=== PATIENT | female | born 1975 | race Caucasian/White ===

== ENCOUNTER 2018-01-26 22:15 | Emergency (ER) | payer OTHER, SELFPAY ==
[2018-01-26 22:17] VITALS: BP 171/98; PULSE 102; RESP 20; TEMP 36.4; O2SAT 100; BMI 21.4
[2018-01-26 23:13] VITALS: BP 145/90; PULSE 93; RESP 18; O2SAT 100
[2018-01-26 23:13] LABS: Add Manual Diff / Slide Review NO; Basophils Percent Auto 0.8 % (0-2); Hematocrit 38.9 % (36-46); Hemoglobin 13.4 g/dL (12.0-16.0); Lymphocytes Percent Auto 32.7 % (25-40); Mean Corpuscular HGB Conc 34.3 % (30-36); Mean Corpuscular Hemoglobin 31.7 PG (26-34); Mean Corpuscular Volume 92.2 fL (80-100); Monocytes Percent Auto 9.5 % (3-14); Neutrophils Absolute Auto 3900 /uL (3000-5900); Platelet Count 280 X10^3/uL (150-400); Red Blood Cell Count 4.22 X10^6/uL (4.0-5.2); Red Cell Distribution Width 12.6 % (11.6-14.8); White Blood Cell Count 7.3 X10^3/uL (4.5-11.0)
[2018-01-26 23:24] LABS: Alanine Aminotransferase 33 IU/L (9-52); Albumin 4.6 g/dL (3.5-5.0); Albumin Globulin Ratio 1.6 (1.0-2.8); Alkaline Phosphatase 57 U/L (38-126); Aspartate Aminotransferase 27 IU/L (14-36); Bilirubin Total 0.4 mg/dL (0.2-1.3); Blood Urea Nitrogen 13 mg/dL (7-17); Carbon Dioxide 27 mmol/L (22-32); Chloride 102 mmol/L (98-107); Estimated Glomerular Filt Rate > 60.0 mL/min (>60); Globulin 2.9 g/dL (1.7-4.1); Glucose 88 mg/dL (70-100); HEMOLYSIS < 15 (0-50); Lipase 44 U/L (23-300); Potassium 3.3 mmol/L (3.4-5.1); Sodium 142 mmol/L (137-145); Total Protein 7.5 g/dL (6.3-8.2)
[2018-01-26] MEDS: SODIUM CHLORIDE 0.9% 1,000 ML 150 ML IV (23:27)
--- NOTE | 2018-01-26 23:47 | DI.RAD.S_ITS ---
PROCEDURE: XR ACUTE ABDOMEN SERIES INDICATIONS: 42 year-old female with abdominal pain. TECHNIQUE: One view chest and two views of the abdomen were acquired. COMPARISON: None. FINDINGS: Surgical changes and devices: Patient is status post cholecystectomy. Intrauterine contraceptive device is present. Chest: Lungs are clear. Heart size is normal. No pleural effusions. No pneumoperitoneum. Abdomen: Bowel gas pattern is normal. No suspicious calcifications. Visualized solid organ contours appear normal. Bones: No suspicious bony lesions. There is small calcification adjacent to the right humeral head. IMPRESSION: 1. No imaging explanation for abdominal pain, status post cholecystectomy. 2. Small right shoulder rotator cuff calcific tendinitis. Dictated by: Adan Hernandez M.D. on 01/27/2018 at 7:57 Approved by: Adan Hernandez M.D. on 01/27/2018 at 7:58
[2018-01-27] MEDS: MAG HYDROX/ALUMINUM/SIMETH SUS 20 ML, LIDOCAINE VISCOUS 2% 15 ML PO (00:01)
[2018-01-27] MEDS: PANTOPRAZOLE 40 MG VIAL IV (00:01)
--- NOTE | 2018-01-27 00:09 | ED.ABDPAIN ---
HPI - Abdominal Pain General Chief Complaint: Abdominal Pain Stated Complaint: STATES UPPER LEFT QUADRANT ABDOMINAL PAIN Time Seen by Provider: 01/26/18 22:40 Source: patient Mode of arrival: ambulatory Limitations: no limitations History of Present Illness HPI narrative: Patient presents to the emergency department today with a chief complaint of a few days of left upper quadrant pain which is sharp and stabbing in nature. She denies palliation of her pain but states it is worse with palpation. She denies radiation of her pain. She denies nausea, vomiting or diarrhea. She had her gallbladder out in July. She does drink a few whiskeys daily. She denies any history of ulcers, gastritis or reflux. MD complaint: abdominal pain Pain Consistency: constant Location: LUQ Severity: mild Quality: cramping and stabbing Radiation: none Migration to: epigastric Relieving factors: nothing Exacerbating factors: nothing Related Data Home Medications Medication Instructions Recorded Confirmed [MIRENA] #0 03/31/04 Bupropion Hydrochloride 150 mg PO * DOSE/FREQUENCY #0 01/26/08 (WELLBUTRIN) Previous Rx's Medication Instructions Recorded pantoprazole 40 mg PO DAILY #30 tab 01/27/18 Allergies Allergy/AdvReac Type Severity Reaction Status Date / Time INGREDIENT: NO KNOWN - NO Allergy Unknown Uncoded 12/04/17 12:57 KNOWN DRUG ALLERGY Review of Systems Review of Systems All systems reviewed & are unremarkable except as noted in HPI and below Constitutional Denies chills, Denies fever(s), Denies lethargy and Denies weakness Eyes Denies change in vision, Denies eye discharge, Denies irritation and Denies loss of vision ENT Ears, Nose, Mouth, and Throat: Denies change in voice, Denies neck pain and Denies sore throat Cardiovascular Denies chest pain, Denies irregular heart rhythm, Denies lightheadedness, Denies palpitations, Denies dyspnea, Denies dyspnea on exertion and Denies orthopnea Respiratory Denies cough, Denies dyspnea, Denies dyspnea on exertion and Denies wheezing Gastrointestinal Gastrointestinal: Reports abdominal pain, Denies change in bowel habits, Denies diarrhea, Denies nausea and Denies vomiting Genitourinary Denies hematuria, Denies flank pain, Denies urinary incontinence and Denies urinary urgency Musculoskeletal Denies neck pain Integumentary/Breasts Denies pruritus, Denies erythema, Denies rash and Denies wounds Neurologic Denies confusion, Denies loss of vision and Denies weakness Psychiatric Denies anxiety, Denies confusion, Denies depression, Denies homicidal ideation and Denies suicidal ideation Endocrine Denies palpitations Hematologic/Lymphatic Denies easy bruising Allergic/Immunologic Denies wheezing PFSH Medical History Cholecystectomy planned (Acute) Social History Smoking Status: Never smoker Exam Initial Vital Signs Initial Vital Signs: Vital Signs Temperature 97.6 F 01/26/18 22:17 Pulse Rate 102 H 01/26/18 22:17 Respiratory Rate 20 01/26/18 22:17 Blood Pressure 171/98 H 01/26/18 22:17 Pulse Oximetry 100 01/26/18 22:17 Const General: cooperative, well developed and anxious Nutritional Appearance: well nourished Orientation: alert, awake, oriented x3 and not confused Eyes General: appearance normal, both eyes and all related structures Eyelids: eyelids normal Conjunctivae: conjunctivae normal Sclera: sclerae normal Pupils: PERRL EOM: EOM intact bilaterally Chest Chest: normal inspection of the chest Resp Effort & Inspection: normal respiratory effort, able to speak in complete sentences, no respiratory distress and no use of accessory muscles Auscultation: clear to auscultation bilaterally, no rales, no rhonchi and no wheezes GI Inspection: non-distended Palpation: soft, no hepatosplenomegaly, No guarding, No pulsatile mass and tender (LUQ) Auscultation: hypoactive bowel sounds Back/Spine/Pelvis Back: No CVA tenderness Cervical Spine: cervical ROM normal and No pain with cervical ROM Thoracic/Lumbar Spine: thoracic and lumbar spine normal to inspection Neuro General: alert, oriented x3, gait normal and no focal motor deficits Speech: speech normal Psych Appearance: well kempt Mental Status: mental status grossly normal Attitude: cooperative Thought Content: normal and suicidality Judgment: judgment good Course Orders Ordered: ED Orders 01/26/18 23:00 Complete Blood Count AUTO DIFF Stat Comprehensive Metabolic Panel Stat Lipase Stat 01/26/18 23:47 XR acute abdomen series Stat Discontinued Medications Hydrocodone Bitart/Acetaminophen (Vicodin Prepack) 1 bottle MISC SEEINSTR ONE Stop: 01/27/18 00:38 Last Admin: 01/27/18 00:53 Dose: 1 bottle Al Hydrox/Mg Hydrox/Simethicone 20 ml/ Lidocaine HCl 15 ml 0 ml PO NOW ONE Stop: 01/26/18 23:48 Last Admin: 01/27/18 00:01 Dose: 15 ml Sodium Chloride (Normal Saline 0.9%) 1,000 mls @ 150 mls/hr IV CONT DOMINIC Last Infusion: 01/27/18 01:06 Dose: 150 mls/hr Infusion: 01/27/18 00:53 Dose: 150 mls/hr Admin: 01/26/18 23:27 Dose: 150 mls/hr Ondansetron HCl (Zofran Odt Prepack) 1 bottle MISC SEEINSTR ONE Stop: 01/27/18 00:38 Last Admin: 01/27/18 00:53 Dose: 1 bottle Pantoprazole Sodium (Protonix) 40 mg IV NOW ONE Stop: 01/26/18 23:48 Last Admin: 01/27/18 00:01 Dose: 40 mg Vital Signs - 8 hr 01/26/18 22:17 01/26/18 23:13 01/27/18 01:07 Temperature 97.6 F 98.2 F Pulse Rate 102 H 93 H 91 H Respiratory Rate 20 18 16 Blood Pressure 171/98 H 139/92 H Blood Pressure [Right Arm] 145/90 H Pulse Oximetry 100 100 100 MDM - Abdominal Pain Differential Diagnosis Differential diagnosis: Likely abdominal pain, constipation, diverticulitis, gastroenteritis, pancreatitis and small bowel obstruction Medical Records Attestation: I reviewed the patient's medical records. Lab Data Attestation: I reviewed the patient's lab results. Result diagrams: 01/26/18 23:00 01/26/18 23:00 Lab Results 01/26/18 01/26/18 Range/Units 23:00 23:00 WBC 7.3 (4.5-11.0) X10^3/uL RBC 4.22 (4.0-5.2) X10^6/uL Hgb 13.4 (12.0-16.0) g/dL Hct 38.9 (36-46) % MCV 92.2 (80-100) fL MCH 31.7 (26-34) PG MCHC 34.3 (30-36) % RDW 12.6 (11.6-14.8) % Plt Count 280 (150-400) X10^3/uL Neut % (Auto) 54.0 (50-75) % Lymph % (Auto) 32.7 (25-40) % [place] % (Auto) 9.5 (3-14) % Eos % (Auto) 3.0 (2-4) % Baso % (Auto) 0.8 (0-2) % Neut # (Auto) 3900 (6803-7375) /uL Sodium 142 (137-145) mmol/L Potassium 3.3 L (3.4-5.1) mmol/L Chloride 102 (98-107) mmol/L Carbon Dioxide 27 (22-32) mmol/L BUN 13 (7-17) mg/dL Creatinine 0.50 L (0.52-1.04) mg/dL Estimated GFR > 60.0 (>60) mL/min BUN/Creatinine Ratio 26.0 H (6-22) Glucose 88 (70-100) mg/dL Calcium 9.0 (8.4-10.2) mg/dL Total Bilirubin 0.4 (0.2-1.3) mg/dL AST 27 (14-36) IU/L ALT 33 (9-52) IU/L Alkaline Phosphatase 57 (38-126) U/L Total Protein 7.5 (6.3-8.2) g/dL Albumin 4.6 (3.5-5.0) g/dL Globulin 2.9 (1.7-4.1) g/dL Albumin/Globulin Ratio 1.6 (1.0-2.8) Lipase 44 (23-300) U/L ECG Data Attestation: I personally reviewed and interpreted this ECG as follows: Prior ECG tracings: not available for review MDM Narrative Medical decision making narrative: Patient has some improvement on above state therapies. Pancreatitis considered however normal enzymes would make that diagnosis much less likely. Small-bowel obstruction considered but x-rays with suggest a nonobstructive bowel pattern. Gastritis, ulcer, dyspepsia are most likely diagnoses given history and exam. Had lengthy bedside discussion with patient about evolution of symptoms which would prompt a return and she has verbalized her understanding. Additionally we discussed whether not a CT scan is likely to provide additional useful information and we are in agreement that we will withhold it this point time given lack of fever, abnormal labs, or significant abdominal exam findings. She states that she will follow up with her primary care providers in [facility]. She has been given local follow-up with General surgery given her possible need of an EGD Discharge Plan Departure Patient Disposition: Home, Self-Care Clinical Impression: Gastritis, Constipation Discharge Date/Time: 01/27/18 01:13 Interventions: ED Discharge Assessment Last Done: 01/27/18 01:07 Instructions: DI for Abdominal Pain-Adult, DI for Dyspepsia Activity Restrictions/Additional Instructions: 1. Drink plenty of fluids with frequent small sips. 2. For the next 24 hours a clear liquid diet is advised. After that please employ a brat diet which would include bananas, rice, apples, toast. 3. Please take medications as directed. 4. Please follow-up with your doctor in the next 1-2 days. Call the office for an appointment. 5. Please return to the emergency Department for any worsening or persistent symptoms, such as increasing pain or fever. *You have been diagnosed with [ left upper quadrant pain: Ulcer versus gastritis versus other ] *What to do: *Take medications as directed take stool softeners Prescriptions: New pantoprazole 40 mg tablet,delayed release (DR/EC) 40 mg PO DAILY Qty: 30 RF: 0 No Action [MIRENA] Qty: 0 RF: 0 Bupropion Hydrochloride (WELLBUTRIN) 150 mg PO * [place] DOSE/FREQUENCY Qty: 0 RF: 0 Referrals: Eleazar Gross MD [Physician] - Stand Alone Forms: Work/School Restrictions
[2018-01-27] MEDS: HYDROCODONE/ACET 5/325 PREPACK 1 BOTTLE MISC (00:53)
[2018-01-27] MEDS: ONDANSETRON 4 MG ODT PREPACK 1 BOTTLE MISC (00:53)
[2018-01-27 01:07] VITALS: BP 139/92; PULSE 91; RESP 16; TEMP 36.8; O2SAT 100
== END 2018-01-27 01:13 | disposition home or self-care (01) ==
PROVIDERS: Emergency Provider Emergency Medicine
DX: K29.70 Gastritis, unspecified, without bleeding (principal); K59.00 Constipation, unspecified
CPT/HCPCS: 36591; 74022; 80053; 81003; 81025; 83690; 85025; 93005; 96361; 96374; 99283; 99285; C9113

== ENCOUNTER 2018-01-28 15:37 | Emergency (ER) | payer OTHER, SELFPAY ==
[2018-01-28 15:48] VITALS: BP 142/82; PULSE 90; RESP 20; O2SAT 100
[2018-01-28 16:51] LABS: Add Manual Diff / Slide Review NO; Basophils Percent Auto 0.9 % (0-2); Eosinophils Percent Auto 4.6 % (2-4); Hematocrit 40.4 % (36-46); Hemoglobin 13.7 g/dL (12.0-16.0); Lymphocytes Percent Auto 30.3 % (25-40); Mean Corpuscular HGB Conc 33.8 % (30-36); Mean Corpuscular Hemoglobin 31.9 PG (26-34); Mean Corpuscular Volume 94.1 fL (80-100); Monocytes Percent Auto 8.8 % (3-14); Neutrophils Absolute Auto 3800 /uL (3000-5900); Neutrophils Percent Auto 55.4 % (50-75); Platelet Count 284 X10^3/uL (150-400); Red Blood Cell Count 4.29 X10^6/uL (4.0-5.2); White Blood Cell Count 6.9 X10^3/uL (4.5-11.0)
[2018-01-28 17:00] LABS: D Dimer 327 ng/mL (<230)
[2018-01-28 17:02] LABS: Alanine Aminotransferase 271 IU/L (9-52); Albumin 4.1 g/dL (3.5-5.0); Albumin Globulin Ratio 1.5 (1.0-2.8); Alkaline Phosphatase 93 U/L (38-126); Aspartate Aminotransferase 127 IU/L (14-36); Bilirubin Total 0.9 mg/dL (0.2-1.3); Blood Urea Nitrogen 9 mg/dL (7-17); Calcium 8.6 mg/dL (8.4-10.2); Carbon Dioxide 31 mmol/L (22-32); Chloride 100 mmol/L (98-107); Estimated Glomerular Filt Rate > 60.0 mL/min (>60); Globulin 2.8 g/dL (1.7-4.1); Glucose 85 mg/dL (70-100); Lipase 53 U/L (23-300); Potassium 3.6 mmol/L (3.4-5.1); Sodium 142 mmol/L (137-145); Total Protein 6.9 g/dL (6.3-8.2)
[2018-01-28] MEDS: SODIUM CHLORIDE 0.9% 1,000 ML 150 ML IV (17:05)
[2018-01-28] MEDS: MAG HYDROX/ALUMINUM/SIMETH SUS 20 ML, LIDOCAINE VISCOUS 2% 15 ML PO (17:05)
[2018-01-28 17:11] VITALS: BP 131/82; PULSE 83; O2SAT 99
[2018-01-28 17:15] LABS: HEMOLYSIS < 15 (0-50); Troponin I < 0.012 ng/mL (0.01-0.034)
--- NOTE | 2018-01-28 17:15 | DI.CT.S_ITS ---
PROCEDURE: CT ANGIO CHEST PE PROTOCOL INDICATIONS: Left lower chest / left upper abdominal pain. TECHNIQUE: After the administration of intravenous contrast, 2 mm thick sections acquired from the pulmonary apices to the posterior costophrenic angles. 3-dimensional maximum intensity projection (MIP) coronal and sagittal reformats were then acquired through the thorax. For radiation dose reduction, the following was used: automated exposure control, adjustment of mA and/or kV according to patient size. COMPARISON: [facility], CT, CT ABDOMEN PELVIS W CON, 01/28/2018, 17:25. FINDINGS: Image quality: Excellent. Pulmonary arteries: Pulmonary arteries demonstrate no intraluminal filling defects to suggest central pulmonary embolism. Lungs and pleura: There is mild dependent atelectasis bilaterally. No focal consolidation. No pleural effusions or pneumothorax. Central and peripheral airways are patent. Mediastinum: Heart size is normal, without pericardial effusion. No mediastinal or hilar adenopathy. There is triangular-shaped soft tissue in the anterior mediastinum compatible with residual thymus. Thoracic aorta is normal in caliber and enhancement. Esophagus is normal in caliber, without hiatal hernia. Bones and chest wall: There are bilateral breast implants. Curvilinear densities are demonstrated within the left implant likely representing an intracapsular implant rupture. No suspicious bony lesions. Ribs and thoracic spine appear intact throughout. No axillary or supraclavicular adenopathy. Abdomen: Visualized upper abdomen demonstrates inflammatory fat stranding within the omentum in the left upper quadrant anteriorly with a central region of fat density compatible with an omental infarct. There is mild adjacent asymmetric thickening and edema of the ventral abdominal wall. IMPRESSION: 1. No evidence of pulmonary embolism. 2. Visualized upper abdomen demonstrates a small region of omental infarct in the left upper quadrant with associated asymmetric edema and thickening of the left ventral abdominal wall which may represent reactive changes. 3. Findings compatible with an intracapsular rupture of the left breast implant of indeterminate acuity. Dictated by: Anoop Porter M.D. on 01/28/2018 at 18:29 Approved by: Anoop Porter M.D. on 01/28/2018 at 18:33
--- NOTE | 2018-01-28 17:15 | DI.CT.S_ITS ---
PROCEDURE: CT ABDOMEN PELVIS W CON INDICATIONS: Left lower chest / left upper abd pain, worse on inspiration TECHNIQUE: After the administration of intravenous contrast, 5 mm thick sections acquired from the diaphragm to the symphysis. 5 mm coronal and sagittal reformats were acquired. For radiation dose reduction, the following was used: automated exposure control, adjustment of mA and/or kV according to patient size. COMPARISON: [facility], CT, CT ANGIO CHEST PE PROTOCOL, 01/28/2018, 17:25. FINDINGS: Image quality: Excellent. ABDOMEN: Lung bases: There is mild dependent atelectasis. Heart size is normal. Solid organs: Liver is normal in size and enhancement. Gallbladder is surgically absent. Biliary system is non dilated. Pancreas enhances normally. Spleen is normal in size and enhancement. No adrenal nodules. Kidneys demonstrate normal size and enhancement, without hydronephrosis. Peritoneum and bowel: Bowel loops demonstrate normal wall thickness and caliber. The appendix is normal in appearance. There is a small amount of free fluid within the pelvis which appears within physiologic limits. No free air. Nodes and vessels: No retroperitoneal or mesenteric adenopathy by size criteria. Aorta and inferior vena cava are normal in size. Miscellaneous: There is focal region of fat stranding of the omentum within the left upper quadrant anterior to the stomach with a central focus of fat attenuation. There is mild asymmetric thickening and edema of the left ventral normal wall. No ventral hernias. PELVIS: Genitourinary: Bladder wall thickness is normal. An IUD is demonstrated in appropriate position within the uterus. Miscellaneous: No inguinal hernias or adenopathy. Bones: No suspicious bony lesions. No vertebral body compression fractures. IMPRESSION: 1. Localized region of inflammatory fat stranding in the omentum within the left upper quadrant with a central area of fat density compatible with an omental infarct. 2. Adjacent asymmetric thickening and edema of the ventral abdominal wall likely represents reactive edema, but the differential includes possible hemorrhage. No evidence of active extravasation. Dictated by: Anoop Porter M.D. on 01/28/2018 at 18:21 Approved by: Anoop Porter M.D. on 01/28/2018 at 18:29
--- NOTE | 2018-01-28 18:14 | ED_ITS ---
HPI - Abdominal Pain General Chief Complaint: Abdominal Pain Stated Complaint: ABDOMINAL PAIN Time Seen by Provider: 01/28/18 16:27 History of Present Illness HPI narrative: HPI 42-year-old female presents for evaluation of approximately 5 days of poorly characterized intermittent left upper quadrant abdominal pain that appears to be worsened with taking deep breaths per movement. Patient without nausea, vomiting, fevers, chills, diarrhea. Patient was seen M/S/F/SocHx notable for: please see HPI; remainder reviewed with patient and in chart. ROS: Negative constitutional, eye, cardiovascular, pulmonary, GI, , MSK, skin , neurologic, psychiatric, endocrine unless noted in the HPI. Exam Gen: Pleasant, non-toxic appearing, resting comfortably. HEENT: NC, AT, PEERL, EOMI. Resp: Clear to auscultation bilaterally, normal work of breathing, no accessory muscle usage. Card: Regular rate and rhythm with no murmurs, rubs, or gallops, extremities warm and well perfused. GI: moderate left upper quadrant tenderness palpation, mild epigastric and mild right upper quadrant tenderness palpation, remainder of abdomen nontender to palpation without rebound or guarding. : No suprapubic tenderness to palpation. MSK: No visible deformities, strength and tone without visually appreciable deficit. Skin: Normal color with no visible lesions. Neuro: AO x 3, no facial asymmetry, vision and hearing WNL. Psych: Mood and affect appropriate. Labs / Imaging: WBC 6.9, hemoglobin 13.7, d-dimer 327, sodium 142, potassium 3.6, total bilirubin 0.9, AST 127, ALT 271, ALP 93, lipase 53, troponin < 0.012, d-dimer 327 UA - pending Urine - pending EKG: SR 82 bpm, no ST segment elevations or depressions, no LBBB. CT PE: pending CT abdomen/pelvis: pending [facility] Previous chart, nursing note, labs, imaging, and vitals reviewed. A: 42-year-old female presents for evaluation of approximately 5 days of poorly characterized intermittent left upper quadrant abdominal pain that appears to be worsened with taking deep breaths per movement. DDx: gastritis, GERD, ulcer, splenic infarction, splenic artery aneurysm, PE, effusion, pneumothorax, pancreatitis, pericarditis, myocarditis Evaluation: patient with a nonsurgical abdominal exam. Elevated d-dimer, concern for left lower lobe PE with secondary upper abdominal pain. CTA chest, CT abdomen and pelvis as well as urinalysis pending at time of patient care transfer to the oncoming overnight provider. GI cocktail given for treatment of possible gastroesophageal reflux disease. Impression: abdominal pain (please reference below for remainder of encounter information) Related Data Home Medications Medication Instructions Recorded Confirmed sertraline 1 dose PO DAILY 01/28/18 01/28/18 Previous Rx's Medication Instructions Recorded pantoprazole 40 mg PO DAILY #30 tab 01/27/18 Allergies Allergy/AdvReac Type Severity Reaction Status Date / Time No Known Drug Allergies Allergy Verified 01/28/18 15:52 COUNTS INCLUDE 234 BEDS AT THE [facility] Medical History Cholecystectomy planned (Acute) Social History Smoking Status: Never smoker Exam Initial Vital Signs Initial Vital Signs: Vital Signs Pulse Rate 90 01/28/18 15:48 Respiratory Rate 20 01/28/18 15:48 Blood Pressure 142/82 H 01/28/18 15:48 Pulse Oximetry 100 01/28/18 15:48 Course Orders Ordered: ED Orders 01/28/18 16:37 Complete Blood Count AUTO DIFF Stat Comprehensive Metabolic Panel Stat D Dimer Stat Lipase Stat Troponin I Stat 01/28/18 16:40 EKG-12 Lead Stat 01/28/18 16:41 Test Urine Stat 01/28/18 16:50 Urinalysis and Microscopic Stat 01/28/18 17:15 CT abdomen pelvis w con Stat CT angio chest PE protocol Stat Sodium Chloride (Normal Saline 0.9%) 1,000 mls @ 150 mls/hr IV CONT DOMINIC Last Admin: 01/28/18 17:05 Dose: 150 mls/hr Discontinued Medications Al Hydrox/Mg Hydrox/Simethicone 20 ml/ Lidocaine HCl 15 ml 0 ml PO NOW ONE Stop: 01/28/18 16:41 Last Admin: 01/28/18 17:05 Dose: 15 ml Vital Signs - 8 hr 01/28/18 15:48 01/28/18 17:11 Pulse Rate 90 83 Respiratory Rate 20 Blood Pressure 142/82 H Blood Pressure [Right Arm] 131/82 H Pulse Oximetry 100 99 MDM - Abdominal Pain Lab Data Result diagrams: 01/28/18 16:37 01/28/18 16:37 Lab Results 01/28/18 01/28/18 01/28/18 Range/Units 16:37 16:37 16:37 WBC 6.9 (4.5-11.0) X10^3/uL RBC 4.29 (4.0-5.2) X10^6/uL Hgb 13.7 (12.0-16.0) g/dL Hct 40.4 (36-46) % MCV 94.1 (80-100) fL MCH 31.9 (26-34) PG MCHC 33.8 (30-36) % RDW 13.0 (11.6-14.8) % Plt Count 284 (150-400) X10^3/uL Neut % (Auto) 55.4 (50-75) % Lymph % (Auto) 30.3 (25-40) % [place] % (Auto) 8.8 (3-14) % Eos % (Auto) 4.6 H (2-4) % Baso % (Auto) 0.9 (0-2) % Neut # (Auto) 3800 (2598-8055) /uL D-Dimer 327 H (<230) ng/mL Sodium 142 (137-145) mmol/L Potassium 3.6 (3.4-5.1) mmol/L Chloride 100 (98-107) mmol/L Carbon Dioxide 31 (22-32) mmol/L BUN 9 (7-17) mg/dL Creatinine 0.60 (0.52-1.04) mg/dL Estimated GFR > 60.0 (>60) mL/min BUN/Creatinine Ratio 15.0 (6-22) Glucose 85 (70-100) mg/dL Calcium 8.6 (8.4-10.2) mg/dL Total Bilirubin 0.9 (0.2-1.3) mg/dL AST 127 H (14-36) IU/L ALT 271 H (9-52) IU/L Alkaline Phosphatase 93 (38-126) U/L Troponin I < 0.012 (0.01-0.034) ng/mL Total Protein 6.9 (6.3-8.2) g/dL Albumin 4.1 (3.5-5.0) g/dL Globulin 2.8 (1.7-4.1) g/dL Albumin/Globulin Ratio 1.5 (1.0-2.8) Lipase 53 (23-300) U/L Discharge Plan Departure Prescriptions: No Action sertraline 100 mg tablet 1 dose PO DAILY RF: 0 pantoprazole 40 mg tablet,delayed release (DR/EC) 40 mg PO DAILY Qty: 30 RF: 0
[2018-01-28 18:15] VITALS: BP 134/80; PULSE 88; O2SAT 99
[2018-01-28 19:25] VITALS: BP 130/88; PULSE 91; O2SAT 99
== END 2018-01-28 19:30 | disposition home or self-care (01) ==
PROVIDERS: Emergency Provider Emergency Medicine
DX: R10.9 Unspecified abdominal pain (principal)
CPT/HCPCS: 71275; 74177; 80053; 81003; 83690; 84484; 85025; 85379; 93005; 96360; 96361; 99283; 99285; Q9967

== ENCOUNTER 2019-07-10 12:11 | Emergency (ER) | payer OTHER, SELFPAY ==
--- NOTE | 2019-07-10 12:37 | PC.NURSE ---
Pt states she took azo yesterday. Feels well and does not want to be seen.
== END 2019-07-10 12:38 | disposition left against medical advice (07) ==
PROVIDERS: Emergency Provider Emergency Medicine

== ENCOUNTER 2020-05-23 14:47 | Emergency (ER) | payer OTHER, SELFPAY ==
[2020-05-23 15:51] VITALS: BP 148/83; PULSE 98; RESP 16; TEMP 36.6; O2SAT 100; BMI 24.3
[2020-05-23 15:52] LABS: Add Manual Diff / Slide Review NO; Basophils Absolute Auto 100 /uL (0-100); Basophils Percent Auto 0.8 % (0-2); Eosinophils Absolute Auto 400 /uL (0-450); Eosinophils Percent Auto 5.2 % (2-4); Hematocrit 37.8 % (36-46); Hemoglobin 12.7 g/dL (12.0-16.0); Lymphocytes Absolute Auto 2500 /uL (1100-4500); Lymphocytes Percent Auto 35.8 % (25-40); Mean Corpuscular HGB Conc 33.7 % (30-36); Mean Corpuscular Hemoglobin 31.4 PG (26-34); Monocytes Absolute Auto 800 /uL (0-900); Monocytes Percent Auto 10.8 % (3-14); Neutrophils Absolute Auto 3300 /uL (1500-7000); Neutrophils Percent Auto 47.4 % (50-75); Platelet Count 326 X10^3/uL (150-400); Red Blood Cell Count 4.06 X10^6/uL (4.0-5.2); Red Cell Distribution Width 12.9 % (11.6-14.8)
[2020-05-23 15:55] LABS: INR 0.9 (0.9-1.3); Prothrombin Time 10.7 SECONDS (10.1-12.7)
[2020-05-23 15:58] LABS: PTT Partial Thromboplastin Tim 32 SECONDS (26.4-36.2)
[2020-05-23 15:59] LABS: Alanine Aminotransferase 19 IU/L (<35); Albumin 4.2 g/dL (3.5-5.0); Albumin Globulin Ratio 1.7 (1.0-2.8); Alkaline Phosphatase 61 U/L (38-126); Aspartate Aminotransferase 25 IU/L (14-36); BUN Creatinine Ratio 22.2 (6-22); Bilirubin Total 0.4 mg/dL (0.2-1.3); Blood Urea Nitrogen 14 mg/dL (7-17); Calcium 9.1 mg/dL (8.4-10.2); Carbon Dioxide 31 mmol/L (22-32); Chloride 104 mmol/L (98-107); Estimated Glomerular Filt Rate > 60.0 mL/min (>60); Globulin 2.5 g/dL (1.7-4.1); Glucose 81 mg/dL (70-100); HEMOLYSIS < 15 (0-50); Lipase 222 U/L (23-300); Potassium 3.3 mmol/L (3.4-5.1); Sodium 140 mmol/L (137-145); Total Protein 6.7 g/dL (6.3-8.2)
[2020-05-23 16:00] LABS: Lactate (Lactic Acid) 0.8 mmol/L (0.7-2.1)
--- NOTE | 2020-05-23 16:03 | ED.EXTPRO ---
HPI - Extremity Problem <YOHANA Hayes - Last Filed: 05/24/20 01:41> General Chief complaint: Extremity Problem,Nontraumatic Stated complaint: RIGHT HAND SWELLING SWELLING LYMPHS 1 MONTH Time Seen by Provider: 05/23/20 15:44 Source: patient Mode of arrival: Ambulatory Limitations: no limitations History of Present Illness HPI Narrative: This is a 44 year female, current vapor, has history of depression presents to ED with chief complain of right dominant hand increasing swelling, warmth, pain and itchiness since yesterday morning. Onset of symptoms started yesterday morning when she woke up in her dorsal hand which now has increased slight to dorsal aspect or hand and mostly in volar aspect of forearm. Patient denies fever, chills, nausea or vomiting but reports not feeling well. Patient reports pain is aching and sharp with teaching and rates as 6/10. Patient noticed very small dry lesions on dorsal aspect of right thumb without any drainage or worsening redness or pain from the site. Patient denies history of cellulitis, diabetes, immunocompromise conditions. Patient has an 1st appointment with Dr. Perez in July. Patient also reports she feels swelling in her lymph system in bilateral upper arms, and neck region and reports occasional weight gain and loose. Patient denies history of heart failure or cardiac conditions. Related Data Home Medications Medication Instructions Recorded Confirmed sertraline 1 dose PO DAILY 01/28/18 01/28/18 Previous Rx's Medication Instructions Recorded pantoprazole 40 mg PO DAILY #30 tab 01/27/18 hydrocodone-acetaminophen [[place]] See Rx Instructions .ROUTE 01/28/18 .COMPLEX #14 tab doxycycline hyclate 100 mg PO BID 7 Days #14 cap 05/23/20 hydrocodone-acetaminophen [[place]] 1 tab PO TID PRN #5 tab 05/23/20 hydroxyzine HCl 25 mg PO BID PRN #7 tab 05/23/20 Allergies Allergy/AdvReac Type Severity Reaction Status Date / Time No Known Drug Allergies Allergy Verified 01/28/18 15:52 Review of Systems <YOHANA Hayes - Last Filed: 05/24/20 01:41> Review of Systems Narrative: General: Denies fever, chills, fatigue, (+) malaise, sweats. HEENT: Denies sinus pain, ear pain, sore throat, difficulty swallowing, dizziness. Respiratory: Denies dyspnea, cough, wheezing, hemoptysis, sputum. Cardiovascular: Denies chest pain, palpitations, orthopnea, edema. Gastrointestinal: Denies nausea, vomiting, abdominal pain, diarrhea, constipation, melena. : Denies dysuria, frequency, incontinence, hematuria, urinary retention. Musculoskeletal: See HPI Skin: See HPI Neurologic: Denies weakness, headache, numbness, change in speech, confusion, seizures, incoordination. Psychiatric: No concerning psychosocial issues. 12-point review of systems is negative except for those stated above. Patient History <YOHANA Hayes - Last Filed: 05/24/20 01:41> Medical History Depression (Acute) Surgical History H/O breast reconstruction (Acute) H/O knee surgery (Acute) History of Achilles tendon repair (Acute) History of cholecystectomy (Acute) Social History Smoking Status: Never smoker Smoking Status: Never smoker tobacco type: vaping alcohol intake frequency: a few times a week Substance Use Type: does not use Exam <YOHANA Hayes - Last Filed: 05/24/20 01:41> Narrative Exam Narrative: GEN: Alert, oriented x 3, well appearing and nourished, and in no acute distress. Head: Normal cephalic, atraumatic. No scalp or temporal tenderness, palpable mass or rash. EYES: Pupils are equal, round, and reactive to light and accommodation. Extraocular muscles are intact bilaterally. There is no subconjunctival hemorrhage, exudate and sclera non-icteric. ENT: Hearing grossly intact. Nose without bleeding, purulent discharge or deviation. Mucous membrane moist, no mucosal lesion. Throat without erythema, tonsillar hypertrophy or exudate. Uvula in midline, airway patent. Neck: Trachea in midline. No JVD, non-tender without lymphadenopathy. No masses or thyroid megaly. Supple, non-tender and no meningeal signs. CARDIAC: Normal regular rate and rhythm without murmurs, gallops, or rubs. No chest wall tenderness. No peripheral edema, cyanosis or pallor. Capillary refill is less than 2 seconds. RESPIRATORY: Lungs are clear to auscultate bilaterally. No cough, wheezes, rales, or rhonchi. No stridor, respiratory distress, increase work of breathing, or accessary muscle used. ABD: Abdomen soft, nontender and non-distended. No guarding or rebound tenderness to palpate. Bowel sounds are normal in all 4 quadrants. There is no palpable masses or organomegaly. EXT: Full painless ROM of all extremities with no loss of sensation, strength. No obvious swelling to bilateral upper and lower extremities as patient states. Right dorsal hand with moderate swelling, warmth, erythema extending to forearm mostly in volar aspect. Radial pulse intact with brisk cap refill. Distal fingers spared from swelling, erythema, or swelling. Tiny flat lesion on dorsal aspect of right thumb without increase in redness, swelling, warmth, drainage. Outlined with a skin pen along the mild erythema extending to forearm. Patient reports right axilla lymph nodes tenderness to palpate but without swelling appreciated. SKIN: Warm, dry, normal color for patient. No erythema, lesions or rash over other visible areas. BACK: Nontender without deformity or crepitance. No flank tenderness. NEUROLOGICAL: Alert and oriented to place, time and person. Sensation and motor function intact bilaterally. No facial droops, dysphasia. PSYCHIATRIC: Good judgement and reason, without hallucinations, abnormal affect or abnormal behaviors during the examination. Patient is not suicidal. Initial Vital Signs Initial Vital Signs: Vital Signs Temperature 98 F 05/23/20 15:51 Pulse Rate 98 H 05/23/20 15:51 Respiratory Rate 16 05/23/20 15:51 Blood Pressure 148/83 H 05/23/20 15:51 Pulse Oximetry 100 05/23/20 15:51 <Desirae Tapia DO - Last Filed: 05/28/20 07:37> Initial Vital Signs Initial Vital Signs: Vital Signs Temperature 98 F 05/23/20 15:51 Pulse Rate 98 H 05/23/20 15:51 Respiratory Rate 16 05/23/20 15:51 Blood Pressure 148/83 H 05/23/20 15:51 Pulse Oximetry 100 05/23/20 15:51 Scores <YOHANA Hayes - Last Filed: 05/24/20 01:41> GCS [place] coma scale eye opening: Spontaneous Ion coma scale verbal response: Orientated [place] coma scale motor response: Obey commands Ion coma scale total score: 15 qSOFA Altered Mental Status (GCS <15): No Respiratory rate greater than/equal to 22: No Systolic blood pressure less than or equal to 100: No qSOFA Total: 0 0-1 Not High Risk 1-3 High risk Course <Brian YOHANA Klein - Last Filed: 05/24/20 01:41> Orders Ordered: Discontinued Medications Vancomycin HCl (Vancomycin) 1,000 mg in 200 mls @ 200 mls/hr IV NOW ONE Stop: 05/23/20 16:59 Last Infusion: 05/23/20 17:48 Dose: 0 mls/hr Documented by: Admin: 05/23/20 16:18 Dose: 200 mls/hr Documented by: REYNOLD Sodium Chloride (Normal Saline 0.9%) 1,000 mls @ 150 mls/hr IV CONT DOMINIC Last Infusion: 05/23/20 18:45 Dose: 0 mls/hr Documented by: Admin: 05/23/20 16:18 Dose: 150 mls/hr Documented by: REYNOLD Ketorolac Tromethamine (Toradol) 15 mg IV NOW ONE Stop: 05/23/20 16:02 Last Admin: 05/23/20 16:17 Dose: 15 mg Documented by: REYNOLD Potassium Chloride (Klor-Con M20) 40 meq PO NOW ONE Stop: 05/23/20 16:18 Last Admin: 05/23/20 16:44 Dose: 40 meq Documented by: JAM Vital Signs Vital signs: Vital Signs - 8 hr 05/23/20 18:49 Pulse Rate 82 Respiratory Rate 20 Blood Pressure 148/72 H Pulse Oximetry 100 <Desirae Tapia DO - Last Filed: 05/28/20 07:37> Orders Ordered: Discontinued Medications Vancomycin HCl (Vancomycin) 1,000 mg in 200 mls @ 200 mls/hr IV NOW ONE Stop: 05/23/20 16:59 Last Infusion: 05/23/20 17:48 Dose: 0 mls/hr Documented by: Admin: 05/23/20 16:18 Dose: 200 mls/hr Documented by: REYNOLD Sodium Chloride (Normal Saline 0.9%) 1,000 mls @ 150 mls/hr IV CONT DOMINIC Last Infusion: 05/23/20 18:45 Dose: 0 mls/hr Documented by: Admin: 05/23/20 16:18 Dose: 150 mls/hr Documented by: REYNOLD Ketorolac Tromethamine (Toradol) 15 mg IV NOW ONE Stop: 05/23/20 16:02 Last Admin: 05/23/20 16:17 Dose: 15 mg Documented by: REYNOLD Potassium Chloride (Klor-Con M20) 40 meq PO NOW ONE Stop: 05/23/20 16:18 Last Admin: 05/23/20 16:44 Dose: 40 meq Documented by: JAM Vital Signs Vital signs: Vital Signs - 8 hr 05/23/20 18:49 Pulse Rate 82 Respiratory Rate 20 Blood Pressure 148/72 H Pulse Oximetry 100 MDM - Extremity (Nontraumatic) <YOHANA Hayes - Last Filed: 05/24/20 01:41> Differential Diagnosis Differential diagnosis: Likely cellulitis and other (sprain, nec fasciitis, heart failure) Medical Records Attestation: I reviewed the patient's medical records. Lab Data Attestation: I reviewed the patient's lab results. Result diagrams: 05/23/20 15:40 05/23/20 15:40 Labs: Lab Results 05/23/20 05/23/20 05/23/20 Range/Units 15:40 15:40 15:40 WBC 7.0 (4.5-11.0) X10^3/uL RBC 4.06 (4.0-5.2) X10^6/uL Hgb 12.7 (12.0-16.0) g/dL Hct 37.8 (36-46) % MCV 93.0 (80-100) fL MCH 31.4 (26-34) PG MCHC 33.7 (30-36) % RDW 12.9 (11.6-14.8) % Plt Count 326 (150-400) X10^3/uL Neut % (Auto) 47.4 L (50-75) % Lymph % (Auto) 35.8 (25-40) % [place] % (Auto) 10.8 (3-14) % Eos % (Auto) 5.2 H (2-4) % Baso % (Auto) 0.8 (0-2) % Neut # (Auto) 3300 (1706-3179) /uL Lymph # (Auto) 2500 (0476-9407) /uL [place] # (Auto) 800 (0-900) /uL Eos # (Auto) 400 (0-450) /uL Baso # (Auto) 100 (0-100) /uL PT 10.7 (10.1-12.7) SECONDS INR 0.9 (0.9-1.3) APTT 32 (26.4-36.2) SECONDS Sodium (137-145) mmol/L Potassium (3.4-5.1) mmol/L Chloride (98-107) mmol/L Carbon Dioxide (22-32) mmol/L BUN (7-17) mg/dL Creatinine (0.52-1.04) mg/dL Estimated GFR (>60) mL/min BUN/Creatinine Ratio (6-22) Glucose (70-100) mg/dL Lactate (0.7-2.1) mmol/L Calcium (8.4-10.2) mg/dL Total Bilirubin (0.2-1.3) mg/dL AST (14-36) IU/L ALT (<35) IU/L Alkaline Phosphatase (38-126) U/L NT-Pro-B Natriuret Pep (<125) pg/mL Total Protein (6.3-8.2) g/dL Albumin (3.5-5.0) g/dL Globulin (1.7-4.1) g/dL Albumin/Globulin Ratio (1.0-2.8) Lipase (23-300) U/L Procalcitonin < 0.05 (<0.5) ng/mL 05/23/20 05/23/20 05/23/20 Range/Units 15:40 15:40 16:06 WBC (4.5-11.0) X10^3/uL RBC (4.0-5.2) X10^6/uL Hgb (12.0-16.0) g/dL Hct (36-46) % MCV (80-100) fL MCH (26-34) PG MCHC (30-36) % RDW (11.6-14.8) % Plt Count (150-400) X10^3/uL Neut % (Auto) (50-75) % Lymph % (Auto) (25-40) % [place] % (Auto) (3-14) % Eos % (Auto) (2-4) % Baso % (Auto) (0-2) % Neut # (Auto) (3360-5997) /uL Lymph # (Auto) (4794-1463) /uL [place] # (Auto) (0-900) /uL Eos # (Auto) (0-450) /uL Baso # (Auto) (0-100) /uL PT (10.1-12.7) SECONDS INR (0.9-1.3) APTT (26.4-36.2) SECONDS Sodium 140 (137-145) mmol/L Potassium 3.3 L (3.4-5.1) mmol/L Chloride 104 (98-107) mmol/L Carbon Dioxide 31 (22-32) mmol/L BUN 14 (7-17) mg/dL Creatinine 0.63 (0.52-1.04) mg/dL Estimated GFR > 60.0 (>60) mL/min BUN/Creatinine Ratio 22.2 H (6-22) Glucose 81 (70-100) mg/dL Lactate 0.8 (0.7-2.1) mmol/L Calcium 9.1 (8.4-10.2) mg/dL Total Bilirubin 0.4 (0.2-1.3) mg/dL AST 25 (14-36) IU/L ALT 19 (<35) IU/L Alkaline Phosphatase 61 (38-126) U/L NT-Pro-B Natriuret Pep 66 (<125) pg/mL Total Protein 6.7 (6.3-8.2) g/dL Albumin 4.2 (3.5-5.0) g/dL Globulin 2.5 (1.7-4.1) g/dL Albumin/Globulin Ratio 1.7 (1.0-2.8) Lipase 222 (23-300) U/L Procalcitonin (<0.5) ng/mL MDM Narrative Medical decision making narrative: This is a 44 year female who presents to ED with swelling, pain and warmth to right dominant hand since yesterday morning which has been progressively increasing today up to right forearm. Patient is afebrile and hemodynamically stable. No leukocytosis. Slight hypokalemia of 3.3. Normal kidney function. Normal lipase. Negative procalcitonin and lactate. Normal coag. Patient is immunocompetent. Patient nontoxic appearing. Patient was treated with vancomycin 1 Gm in ED and discharged to home with doxycycline b.i.d. course for 7 day course to cover MRSA and Strep etiology cellulitis. The reports intermittent weight gain and swelling to lower and upper extremities but without obvious physical exam findings. No previous history of cardiac or pulmonary disease. ProBNP is negative. Return precautions were discussed with patient and patient verbalized understanding in agreement with treatment plan. <Desirae Tapia, - Last Filed: 05/28/20 07:37> Lab Data Labs: Lab Results 05/23/20 05/23/20 05/23/20 Range/Units 15:40 15:40 15:40 WBC 7.0 (4.5-11.0) X10^3/uL RBC 4.06 (4.0-5.2) X10^6/uL Hgb 12.7 (12.0-16.0) g/dL Hct 37.8 (36-46) % MCV 93.0 (80-100) fL MCH 31.4 (26-34) PG MCHC 33.7 (30-36) % RDW 12.9 (11.6-14.8) % Plt Count 326 (150-400) X10^3/uL Neut % (Auto) 47.4 L (50-75) % Lymph % (Auto) 35.8 (25-40) % [place] % (Auto) 10.8 (3-14) % Eos % (Auto) 5.2 H (2-4) % Baso % (Auto) 0.8 (0-2) % Neut # (Auto) 3300 (0588-6673) /uL Lymph # (Auto) 2500 (1754-4692) /uL [place] # (Auto) 800 (0-900) /uL Eos # (Auto) 400 (0-450) /uL Baso # (Auto) 100 (0-100) /uL PT 10.7 (10.1-12.7) SECONDS INR 0.9 (0.9-1.3) APTT 32 (26.4-36.2) SECONDS Sodium (137-145) mmol/L Potassium (3.4-5.1) mmol/L Chloride (98-107) mmol/L Carbon Dioxide (22-32) mmol/L BUN (7-17) mg/dL Creatinine (0.52-1.04) mg/dL Estimated GFR (>60) mL/min BUN/Creatinine Ratio (6-22) Glucose (70-100) mg/dL Lactate (0.7-2.1) mmol/L Calcium (8.4-10.2) mg/dL Total Bilirubin (0.2-1.3) mg/dL AST (14-36) IU/L ALT (<35) IU/L Alkaline Phosphatase (38-126) U/L NT-Pro-B Natriuret Pep (<125) pg/mL Total Protein (6.3-8.2) g/dL Albumin (3.5-5.0) g/dL Globulin (1.7-4.1) g/dL Albumin/Globulin Ratio (1.0-2.8) Lipase (23-300) U/L Procalcitonin < 0.05 (<0.5) ng/mL 05/23/20 05/23/20 05/23/20 Range/Units 15:40 15:40 16:06 WBC (4.5-11.0) X10^3/uL RBC (4.0-5.2) X10^6/uL Hgb (12.0-16.0) g/dL Hct (36-46) % MCV (80-100) fL MCH (26-34) PG MCHC (30-36) % RDW (11.6-14.8) % Plt Count (150-400) X10^3/uL Neut % (Auto) (50-75) % Lymph % (Auto) (25-40) % [place] % (Auto) (3-14) % Eos % (Auto) (2-4) % Baso % (Auto) (0-2) % Neut # (Auto) (1969-0143) /uL Lymph # (Auto) (3281-8638) /uL [place] # (Auto) (0-900) /uL Eos # (Auto) (0-450) /uL Baso # (Auto) (0-100) /uL PT (10.1-12.7) SECONDS INR (0.9-1.3) APTT (26.4-36.2) SECONDS Sodium 140 (137-145) mmol/L Potassium 3.3 L (3.4-5.1) mmol/L Chloride 104 (98-107) mmol/L Carbon Dioxide 31 (22-32) mmol/L BUN 14 (7-17) mg/dL Creatinine 0.63 (0.52-1.04) mg/dL Estimated GFR > 60.0 (>60) mL/min BUN/Creatinine Ratio 22.2 H (6-22) Glucose 81 (70-100) mg/dL Lactate 0.8 (0.7-2.1) mmol/L Calcium 9.1 (8.4-10.2) mg/dL Total Bilirubin 0.4 (0.2-1.3) mg/dL AST 25 (14-36) IU/L ALT 19 (<35) IU/L Alkaline Phosphatase 61 (38-126) U/L NT-Pro-B Natriuret Pep 66 (<125) pg/mL Total Protein 6.7 (6.3-8.2) g/dL Albumin 4.2 (3.5-5.0) g/dL Globulin 2.5 (1.7-4.1) g/dL Albumin/Globulin Ratio 1.7 (1.0-2.8) Lipase 222 (23-300) U/L Procalcitonin (<0.5) ng/mL Discharge Plan Departure Patient Disposition: Home Clinical Impression: Cellulitis Qualifiers: Site of cellulitis: extremity Site of cellulitis of extremity: upper extremity Laterality: right Qualified Code(s): L03.113 - Cellulitis of right upper limb Discharge Date/Time: 05/23/20 18:54 Instructions: DI for Cellulitis -- Adult Activity Restrictions/Additional Instructions: You have been diagnosed with [right upper extremity cellulitis.]. What to do: *Take your medications as directed. Please start taking doxycycline tonight before bed and twice a day for next 7 days. This is antibiotic medication. Hydroxyzine is for itching and as needed. You can take [id number] Tylenol and or Motrin as needed for discomfort. Tylenol 650-1000 mg as needed up to 3 times a day. Ibuprofen 400-600 mg as needed for pain 3 to 4 times a day with food to decrease GI irritation. [place] is narcotic pain medication and use it only for severe pain. It can cause drowsiness and constipation so please take precautions. Please do not drink alcohol, drive, or operate heavy equipments. Please avoid taking hydroxyzine and [place] at the same time since this can cause increase in sedation. This medication have been transmitted to [facility]. *Follow up with your primary care provider in 2-3 days, call for an appointment. Let them know you were seen in the ED and that we asked you to be seen in follow up. *Return to ED if you have any new, worsening, or concerning symptoms, such as [worsening pain, increasing warmth, swelling, redness after couple of doses of antibiotic medication, chest pain, breathing difficulty, unable to tolerate fluids or any acute concerns]. Prescriptions: New doxycycline hyclate 100 mg capsule 100 mg PO BID 7 Days Qty: 14 RF: 0 hydrocodone-acetaminophen [[place]] 5-325 mg tablet 1 tab PO TID PRN (Reason: pain) Qty: 5 RF: 0 hydroxyzine HCl 25 mg tablet 25 mg PO BID PRN (Reason: itching) Qty: 7 RF: 0 No Action sertraline 100 mg tablet 1 dose PO DAILY RF: 0 hydrocodone-acetaminophen [[place]] 5-325 mg tablet See Rx Instructions .ROUTE .COMPLEX Qty: 14 RF: 0 pantoprazole 40 mg tablet,delayed release (DR/EC) 40 mg PO DAILY Qty: 30 RF: 0 Referrals: Sharon De La Torre DO [Physician] - <Desirae Tapia DO - Last Filed: 05/28/20 07:37> [facility] ED Attending Tylorature Attestation: I was immediately available in the department for consultation. Documentation has been reviewed. I agree with assessment and plan.
[2020-05-23] MEDS: KETOROLAC 60 MG/2 ML VIAL 15 MG IV (16:17)
[2020-05-23] MEDS: SODIUM CHLORIDE 0.9% 1,000 ML 150 ML IV (16:18)
[2020-05-23] MEDS: VANCOMYCIN 1,000 MG/200 ML PIGGYBACK 200 MG IV (16:18)
[2020-05-23 16:22] LABS: Procalcitonin < 0.05 ng/mL (<0.5)
[2020-05-23 16:23] LABS: NT-proBNP (BNP-Adult 18+) 66 pg/mL (<125)
[2020-05-23] MEDS: POTASSIUM CHLORIDE 20 MEQ TAB 40 MEQ PO (16:44)
[2020-05-23 18:49] VITALS: BP 148/72; PULSE 82; RESP 20; O2SAT 100
== END 2020-05-23 18:54 | disposition home or self-care (01) ==
PROVIDERS: Emergency Medicine; Emergency Provider Nurse Practitioner Family
DX: L03.113 Cellulitis of right upper limb (principal)
CPT/HCPCS: 36415; 80053; 83605; 83690; 83880; 84145; 85025; 85610; 85730; 96361; 96365; 96366; 96375; 99284; J1885

== ENCOUNTER → 2020-06-29 15:58 | Outpatient (CLI) | payer OTHER, SELFPAY ==
[2020-06-29 16:27] LABS: C-Reactive Protein Quant < 0.5 mg/dL (<1.0)
[2020-06-29 16:50] LABS: Erythrocyte Sedimentation Rate 2 MM/HR (0-20)
[2020-06-30 19:09] LABS: ANA Screen, IFA Positive (.)
== END ==
PROVIDERS: PCP Family Medicine; Referring Provider Nurse Practitioner Family; Visit Provider Nurse Practitioner Family
DX: M25.50 Pain in unspecified joint (principal); F41.9 Anxiety disorder, unspecified
CPT/HCPCS: 36415; 84443; 85651; 86038; 86140

== ENCOUNTER → 2020-07-16 11:29 | Outpatient (CLI) | payer OTHER, SELFPAY ==
[2020-07-16 13:31] LABS: Rheumatoid Factor < 8.6 IU/mL (<12.0)
[2020-07-19 23:29] LABS: CCP Antibodies IgG/IgA 4 units (0-19)
== END ==
PROVIDERS: PCP Family Medicine; Referring Provider Family Medicine; Visit Provider Family Medicine
DX: M25.50 Pain in unspecified joint (principal)
CPT/HCPCS: 36415; 86200; 86430

== ENCOUNTER 2020-08-02 00:41 | Emergency (ER) | payer OTHER, SELFPAY ==
[2020-08-02 00:52] VITALS: BP 159/89; PULSE 96; RESP 18; TEMP 36.8; O2SAT 98; BMI 25.8
--- NOTE | 2020-08-02 01:14 | ED_ITS ---
HPI - Female Genitourinary General Chief complaint: Urogenital-Female Stated complaint: UTI SYMPTOMS X1 DAY Time Seen by Provider: 08/02/20 00:52 Source: patient Mode of arrival: Ambulatory Limitations: no limitations History of Present Illness HPI Narrative: 44F daily smoker presents with a day of urinary frequency, burning, and urgency. She denies systemic symptoms such as fever, chills, N/V, or back pain. She's had UTIs in the past and states this seems the same. MD Complaint: dysuria and UTI Onset (ago): hour(s) Location: suprapubic Severity: mild Quality: Burning Duration: constant Relieving factors: none Exacerbating factors: urination Urinary symptoms: Difficulty Urinating, Dysuria, Frequency and Urgency Patient : No Related Data Home Medications Medication Instructions Recorded Confirmed duloxetine 60 mg capsule,delayed 60 mg PO DAILY 06/29/20 06/29/20 release escitalopram oxalate 20 mg tablet 20 mg PO DAILY 06/29/20 06/29/20 ibuprofen 200 mg tablet 600 mg PO TID tab 06/29/20 06/29/20 Previous Rx's Medication Instructions Recorded hydroxyzine HCl 25 mg PO BID PRN #7 tab 05/23/20 buspirone 5 mg tablet 5 mg PO BID #60 tab 06/29/20 fluconazole 150 mg PO Q3D #2 tab 08/02/20 sulfamethoxazole-trimethoprim 1 tab PO BID 5 Days #10 tab 08/02/20 [Bactrim DS] Allergies Allergy/AdvReac Type Severity Reaction Status Date / Time No Known Drug Allergies Allergy Verified 08/02/20 00:57 Review of Systems Constitutional Constitutional: Denies chills, Denies fatigue, Denies fever(s), Denies frequent falls, Denies lethargy and Denies weakness Eyes Eyes: Denies change in vision, Denies eye discharge, Denies irritation and Denies loss of vision ENT Ears, Nose, Mouth, and Throat: Denies change in voice, Denies dizziness, Denies neck pain, Denies sore throat and Denies throat swelling Cardiovascular Cardiovascular: Denies chest pain, Denies irregular heart rhythm, Denies lightheadedness, Denies palpitations, Denies dyspnea, Denies dyspnea on exertion and Denies orthopnea Respiratory Respiratory: Denies cough, Denies dyspnea, Denies dyspnea on exertion and Denies wheezing Gastrointestinal Gastrointestinal: Denies abdominal pain, Denies change in bowel habits, Denies diarrhea, Denies nausea and Denies vomiting Genitourinary Genitourinary: Reports dysuria and Reports urinary urgency Genitourinary: Reports dysuria and Reports urinary urgency Musculoskeletal Musculoskeletal: Denies neck pain and Denies numbness Integumentary/Breasts Skin/Breast: Denies pruritus, Denies erythema, Denies rash and Denies wounds Neurologic Neurologic: Denies behavioral changes, Denies confusion, Denies dizziness, Denies frequent falls, Denies loss of vision, Denies numbness and Denies weakness Psychiatric Psychiatric: Denies anxiety, Denies behavioral changes, Denies confusion, Denies depression, Denies homicidal ideation and Denies suicidal ideation Endocrine Endocrine: Denies fatigue, Denies flushing and Denies palpitations Hematologic/Lymphatic Hematologic/Lymphatic: Denies easy bruising Allergic/Immunologic Allergic/Immunologic: Denies urticaria, Denies throat swelling and Denies wheezing Patient History Medical History Anxiety Depression Joint pain Surgical History H/O breast reconstruction H/O knee surgery History of Achilles tendon repair History of cholecystectomy tobacco type: vaping alcohol intake frequency: a few times a week Substance Use Type: does not use Exam Narrative Exam Narrative: GEN: AOx3 and in mild distress EYES: Pupils are equal, round, and reactive to light and accommodation. Extraoccular muscles are intact bilaterally. There is no subconjunctival hemorrhage or exudate. CHEST: Lungs are clear to auscultation bilaterally and free of wheezes, rales, or rhonchi. Heart rate is regular rhythm, there are no murmurs, clicks, rubs, or gallops. There is no chest wall tenderness. ABD: Abdomen is soft and mildly tender in the suprapubic region. There is no guarding or rebound. Bowel sounds are normal in all 4 quadrants. There is no mass or organomegaly. EXT: Full painless ROM of all extremities with no loss of sensation or strength. SKIN: Warm, pink, and dry. No erythema or rash Initial Vital Signs Initial Vital Signs: Vital Signs Temperature 98.3 F 08/02/20 00:52 Pulse Rate 96 H 08/02/20 00:52 Respiratory Rate 18 08/02/20 00:52 Blood Pressure 159/89 H 08/02/20 00:52 Pulse Oximetry 98 08/02/20 00:52 Course Orders Ordered: ED Orders 08/02/20 01:04 UA Complete [Urinalysis and Microscopic] Stat Urine Culture Stat Discontinued Medications Trimethoprim/Sulfamethoxazole (Trimeth/Sulfa 160/800 (Ds) Tablet) 1 tab PO NOW ONE Stop: 08/02/20 01:19 Last Admin: 08/02/20 01:38 Dose: 1 tab Documented by: JOHANN Vital Signs Vital signs: Vital Signs - 8 hr 08/02/20 00:52 Temperature 98.3 F Pulse Rate 96 H Respiratory Rate 18 Blood Pressure 159/89 H Pulse Oximetry 98 MDM - Female Genitourinary Lab Data Labs: Lab Results 08/02/20 Range/Units 01:04 Urine Color Yellow Urine Appearance Slightly cloudy Urine pH 7.0 (4.5-8.0) Ur Specific [place] 1.020 (1.000-1.035) Urine Protein 1+ H (Negative) Urine Glucose (UA) Negative (Negative) g/dL Urine Ketones Negative (NEGATIVE) Urine Occult Blood 3+ H (Negative) Urine Nitrate Negative (Negative) Urine Bilirubin Negative (NEGATIVE) Urine Urobilinogen 0.2 (0.2) E.U./dL Ur Leukocyte Esterase Trace H (NEGATIVE) Urine RBC 1-5/hpf (0-5/HPF) Urine WBC 5-10/hpf H (0-5/HPF) Ur Squamous Epith Cells 1-5 /hpf (0-5/HPF) Urine Bacteria Many (>30) H (None) Ur Culture Indicated? Specimen cultured Discharge Plan Departure Patient Disposition: Home Clinical Impression: Urinary tract infection Qualifiers: Urinary tract infection type: acute cystitis Hematuria presence: with hematuria Qualified Code(s): N30.01 - Acute cystitis with hematuria Instructions: DI for Urinary Tract Infection (UTI) Activity Restrictions/Additional Instructions: *You have been diagnosed with [urinary tract infection] *What to do: *Take medications as directed *Follow up with your primary care provider in 2-3 days, call for an appointment. Let them know you were seen in the Emergency Department and that we ask that you be seen in follow up *Return to ER if you should have any new, worsening or concerning symptoms, such as [back pain, nausea, fever greater than 101 F or other concerning symptoms] Prescriptions: New fluconazole 150 mg tablet 150 mg PO Q3D Qty: 2 RF: 0 sulfamethoxazole-trimethoprim [Bactrim DS] 800-160 mg tablet 1 tab PO BID 5 Days Qty: 10 RF: 0 No Action escitalopram oxalate [Lexapro] 20 mg tablet 20 mg PO DAILY RF: 0 duloxetine [Cymbalta] 60 mg capsule,delayed release(DR/EC) 60 mg PO DAILY RF: 0 ibuprofen 200 mg tablet 600 mg PO TID RF: 0 buspirone 5 mg tablet 5 mg PO BID Qty: 60 RF: 0 hydroxyzine HCl 25 mg tablet 25 mg PO BID PRN (Reason: itching) Qty: 7 RF: 0 Referrals: Sharon De La Torre DO [Primary Care Provider] -
[2020-08-02 01:26] LABS: Bilirubin Urine UA NEGATIVE (NEGATIVE); Color Urine UA YELLOW; Glucose Urine UA NEGATIVE (Negative); Ketones Urine UA NEGATIVE (NEGATIVE); Leukocyte Esterase Urine UA TRACE (NEGATIVE); Nitrite Urine UA NEGATIVE (Negative); Occult Blood Urine UA 3+ (Negative); Protein Urine UA 1+ (Negative); Urobilinogen Urine UA 0.2 E.U./dL (0.2)
[2020-08-02 01:29] LABS: Appearance Urine UA Slightly Cloudy
[2020-08-02] MEDS: TRIMETH/SULFA 160/800 (DS) TABLET 1 TAB PO (01:38)
[2020-08-02 02:07] LABS: Bacteria Urine Many (>30); Culture Indicated Urine Specimen Cultured; RBC Urine 1-5/HPF (0-5/HPF); Squamous Epithelial Cell Urine 1-5 /HPF (0-5/HPF); WBC Urine 5-10/HPF (0-5/HPF)
== END 2020-08-02 01:42 | disposition home or self-care (01) ==
PROVIDERS: Emergency Provider Emergency Medicine; PCP Family Medicine
DX: N30.01 Acute cystitis with hematuria (principal)
CPT/HCPCS: 81001; 87077; 87086; 87186; 99281; 99283

== ENCOUNTER → 2020-09-02 10:53 | Outpatient (CLI) | payer OTHER, SELFPAY ==
[2020-09-02 11:51] LABS: Add Manual Diff / Slide Review NO; Basophils Absolute Auto 100 /uL (0-100); Eosinophils Absolute Auto 100 /uL (0-450); Eosinophils Percent Auto 2.6 % (2-4); Hematocrit 39.4 % (36-46); Hemoglobin 13.3 g/dL (12.0-16.0); Lymphocytes Absolute Auto 1900 /uL (1100-4500); Lymphocytes Percent Auto 35.3 % (25-40); Mean Corpuscular HGB Conc 33.7 % (30-36); Mean Corpuscular Hemoglobin 31.6 PG (26-34); Monocytes Absolute Auto 600 /uL (0-900); Monocytes Percent Auto 10.8 % (3-14); Neutrophils Absolute Auto 2700 /uL (1500-7000); Neutrophils Percent Auto 50.3 % (50-75); Platelet Count 262 X10^3/uL (150-400); Red Blood Cell Count 4.19 X10^6/uL (4.0-5.2); Red Cell Distribution Width 12.6 % (11.6-14.8); White Blood Cell Count 5.3 X10^3/uL (4.5-11.0)
[2020-09-02 12:23] LABS: Alanine Aminotransferase 26 IU/L (<35); Albumin 4.1 g/dL (3.5-5.0); Albumin Globulin Ratio 1.8 (1.0-2.8); Alkaline Phosphatase 64 U/L (38-126); Aspartate Aminotransferase 34 IU/L (14-36); BUN Creatinine Ratio 21.2 (6-22); Bilirubin Total 0.2 mg/dL (0.2-1.3); Blood Urea Nitrogen 11 mg/dL (7-17); C-Reactive Protein Quant < 0.5 mg/dL (<1.0); Carbon Dioxide 28 mmol/L (22-32); Chloride 104 mmol/L (98-107); Estimated Glomerular Filt Rate > 60.0 mL/min (>60); Globulin 2.3 g/dL (1.7-4.1); Glucose 101 mg/dL (70-100); HEMOLYSIS < 15 (0-50); Potassium 3.8 mmol/L (3.4-5.1); Sodium 137 mmol/L (137-145); Total Protein 6.4 g/dL (6.3-8.2)
[2020-09-02 12:46] LABS: Erythrocyte Sedimentation Rate 2 MM/HR (0-20)
== END ==
PROVIDERS: PCP Family Medicine; Referring Provider Family Medicine; Visit Provider Family Medicine
DX: I88.9 Nonspecific lymphadenitis, unspecified (principal); Z79.1 Long term (current) use of non-steroidal anti-inflammatories (NSAID)
CPT/HCPCS: 36415; 80053; 85025; 85651; 86140

== ENCOUNTER 2020-12-15 22:34 | Emergency (ER) | payer OTHER, SELFPAY ==
[2020-12-15 22:47] VITALS: BP 180/97; PULSE 94; RESP 18; TEMP 36.7; O2SAT 98; BMI 23.6
[2020-12-15 22:48] VITALS: PULSE 92; O2SAT 98
--- NOTE | 2020-12-15 22:52 | ED_ITS ---
HPI - General Adult General Chief complaint: Urogenital-Female Stated complaint: thinks UTI Time Seen by Provider: 12/15/20 22:36 Source: patient Mode of arrival: Ambulatory Limitations: no limitations History of Present Illness HPI narrative: Patient is a 45-year-old female here for evaluation approximately 24 hours of dysuria and frequency and nausea in flank pain. She did take a improved EM that she had from a prior urinary tract infection prior to arrival. She denies any fevers. No vomiting. She states that it feels like a prior urinary tract infection. Related Data Home Medications Medication Instructions Recorded Confirmed ibuprofen 200 mg tablet 600 mg PO TID tab 06/29/20 09/02/20 Previous Rx's Medication Instructions Recorded amitriptyline 10 mg tablet 20 mg PO BEDTIME PRN #60 tab 09/02/20 duloxetine 60 mg capsule,delayed 60 mg PO DAILY #90 cap 09/02/20 release buspirone 5 mg tablet 10 mg PO TID #180 tab 09/14/20 escitalopram oxalate 20 mg tablet See Rx Instructions .ROUTE 11/21/20 .COMPLEX #90 tab cephalexin 500 mg PO BID 7 Days #14 cap 12/15/20 fluconazole [Diflucan] 100 mg PO DAILY #2 tab 12/15/20 Allergies Allergy/AdvReac Type Severity Reaction Status Date / Time No Known Drug Allergies Allergy Verified 09/02/20 09:51 Review of Systems Constitutional Constitutional: Denies fatigue and Denies fever(s) Cardiovascular Cardiovascular: Denies chest pain and Denies dyspnea Respiratory Respiratory: Denies dyspnea Gastrointestinal Gastrointestinal: Denies change in bowel habits, Reports nausea and Denies vomiting Genitourinary Genitourinary: Reports dysuria, Reports flank pain, Reports urinary hesitancy and Reports urinary urgency Genitourinary: Reports dysuria, Reports flank pain, Reports urinary hesitancy and Reports urinary urgency Musculoskeletal Musculoskeletal: Denies arthralgias and Denies myalgias Integumentary/Breasts Skin/Breast: Denies rash Neurologic Neurologic: Denies behavioral changes Psychiatric Psychiatric: Denies behavioral changes Endocrine Endocrine: Denies fatigue Hematologic/Lymphatic On Anticoagulants: No Allergic/Immunologic Allergic/Immunologic: Denies urticaria Patient History Medical History Anxiety Depression (~2002) Heavy menstrual period (~1991) Joint pain Musculoskeletal pain (~2017) Ovarian cyst (~2002) Painful menstrual periods (~1991) Rheumatoid arthritis (~2018) Shoulder pain (~2014) Swelling of finger joint of right hand (~05/2019) Surgical History Anesthesia H/O breast reconstruction H/O knee surgery History of Achilles tendon repair (~2010) History of cholecystectomy (~2017) Family History (Updated 09/04/20 @ 21:37 by Sharon De La Torre DO) Father History of heart disease Hypertension Hyperlipidemia Mother Cancer History of heart disease Hypertension Hyperlipidemia Mental health problem Lymphoma Grandfather History of blood clots Grandmother Diabetes mellitus History of heart disease Hypertension Hyperlipidemia Stroke Grandfather Cancer Grandmother Alcoholism Social History Smoking Status: Current every day smoker Smoking Status: Current every day smoker tobacco type: vaping alcohol intake frequency: a few times a week Substance Use Type: does not use Exam Initial Vital Signs Initial Vital Signs: Vital Signs Temperature 98.1 F 12/15/20 22:47 Pulse Rate 94 H 12/15/20 22:47 Respiratory Rate 18 12/15/20 22:47 Blood Pressure 180/97 H 12/15/20 22:47 Pulse Oximetry 98 12/15/20 22:47 Const General: cooperative and comfortable Limitations: mental status not altered HENMT Head: normal to inspection and normocephalic Eyes General: appearance normal, both eyes and all related structures Resp Effort & Inspection: normal respiratory effort Cardio Rate: regular rate GI Inspection: non-distended Skin Lesions: no lesions Rashes: no rashes Neuro General: patient alert and patient awake Cognition: normal cognition Extrem General: normal to inspection Psych Appearance: grossly normal and well kempt Course Orders Ordered: ED Orders 12/15/20 22:40 Urinalysis and Microscopic Stat Urine Culture Stat Discontinued Medications Cephalexin HCl (Cephalexin 250 Mg Capsule) 500 mg PO NOW ONE Stop: 12/15/20 23:30 Last Admin: 12/15/20 23:39 Dose: 500 mg Documented by: LEIGH Ondansetron HCl (Ondansetron 4 Mg Odt) 4 mg SL NOW ONE Stop: 12/15/20 23:30 Last Admin: 12/15/20 23:39 Dose: 4 mg Documented by: LEIGH Ondansetron HCl (Ondansetron 4 Mg Odt Prepack) 1 bottle MISC SEEINSTR ONE Stop: 12/15/20 23:30 Last Admin: 12/15/20 23:39 Dose: 1 bottle Documented by: LEIGH Vital Signs Vital signs: Vital Signs - 8 hr 12/15/20 22:47 12/15/20 22:48 12/15/20 23:00 Temperature 98.1 F Pulse Rate 94 H 92 H 92 H Respiratory Rate 18 Blood Pressure 180/97 H Pulse Oximetry 98 98 98 12/15/20 23:30 12/15/20 23:40 Temperature Pulse Rate 87 89 Respiratory Rate Blood Pressure 170/91 H Pulse Oximetry 99 97 Medical Decision Making Medical Records Medical records reviewed: Yes I reviewed the patient's medical records. Lab Data Lab results reviewed: Yes I reviewed the patient's lab results. Labs: Lab Results 12/15/20 Range/Units 22:40 Urine Color Pyridium orange Urine Appearance Clear Urine pH 6 (4.5-8.0) Ur Specific [place] 1.030 (1.000-1.035) Urine Protein Negative (Negative) Urine Glucose (UA) Negative (Negative) g/dL Urine Ketones Not Reportable Urine Occult Blood Negative (Negative) Urine Nitrate Not Reportable Urine Bilirubin Negative (NEGATIVE) Urine Urobilinogen Not Reportable Ur Leukocyte Esterase Negative (NEGATIVE) Urine RBC None seen (0-5/HPF) Urine WBC 5-10/hpf H (0-5/HPF) Ur Squamous Epith Cells 1-5 /hpf (0-5/HPF) Urine Bacteria Occasional (0-1) D (None) Ur Culture Indicated? Specimen cultured Point of Care Testing Test Results Negative Point of care testing: Point of Care Testing Test Results Negative MDM Narrative Medical decision making narrative: Given her presenting symptoms and her urinalysis will treat for urinary tract infection. She was given a dose of antibiotics here in the ER and she tolerated without problems. Was sent home with a prescription for. She also requested a prescription for Diflucan. Review of her medical records does show that she had a pansensitive E coli at the end of last year. Low suspicion for pyelonephritis. She was given return precautions and follow-up instructions. She expressed understanding and agreement. Discharge Plan Departure Patient Disposition: Home Clinical Impression: UTI (urinary tract infection) Instructions: DI for Urinary Tract Infection (UTI) Activity Restrictions/Additional Instructions: You were given your 1st dose of antibiotics here in the emergency department. The remainder of the prescription was electronically transmitted to [email or web address]. I also transmitted a prescription for Diflucan. Use the nausea medication as ne eded. Return to the emergency department for any new or worsening symptoms Prescriptions: New cephalexin 500 mg capsule 500 mg PO BID 7 Days Qty: 14 RF: 0 fluconazole [Diflucan] 100 mg tablet 100 mg PO DAILY Qty: 2 RF: 0 No Action escitalopram oxalate 20 mg tablet See Rx Instructions .ROUTE .COMPLEX Qty: 90 RF: 0 ibuprofen 200 mg tablet 600 mg PO TID RF: 0 duloxetine [Cymbalta] 60 mg capsule,delayed release(DR/EC) 60 mg PO DAILY Qty: 90 RF: 0 amitriptyline 10 mg tablet 20 mg PO BEDTIME PRN (Reason: sleep) Qty: 60 RF: 0 buspirone 5 mg tablet 10 mg PO TID Qty: 180 RF: 1 Referrals: Sharon De La Torre DO [Primary Care Provider] -
[2020-12-15 23:00] VITALS: PULSE 92; O2SAT 98
[2020-12-15 23:01] LABS: RBC Urine None Seen (0-5/HPF)
[2020-12-15 23:21] LABS: Appearance Urine UA CLEAR; Bilirubin Urine UA Negative (NEGATIVE); Color Urine UA PYRIDIUM ORANGE; Glucose Urine UA NEGATIVE (Negative); Occult Blood Urine UA Negative (Negative); Protein Urine UA Negative (Negative); pH Urine UA 6 (4.5-8.0)
[2020-12-15 23:22] LABS: Leukocyte Esterase Urine UA NEGATIVE (NEGATIVE)
[2020-12-15 23:23] LABS: Bacteria Urine Occasional (0-1); Culture Indicated Urine Specimen Cultured; Squamous Epithelial Cell Urine 1-5 /HPF (0-5/HPF); WBC Urine 5-10/HPF (0-5/HPF)
[2020-12-15 23:30] VITALS: PULSE 87; O2SAT 99
[2020-12-15] MEDS: cephALEXin 250 MG CAPSULE 500 MG PO (23:39)
[2020-12-15] MEDS: ONDANSETRON 4 MG ODT PREPACK 1 BOTTLE MISC (23:39)
[2020-12-15] MEDS: ONDANSETRON 4 MG ODT SL (23:39)
[2020-12-15 23:40] VITALS: BP 170/91; PULSE 89; O2SAT 97
== END 2020-12-15 23:44 | disposition home or self-care (01) ==
PROVIDERS: Emergency Provider Emergency Medicine; PCP Family Medicine
DX: N39.0 Urinary tract infection, site not specified (principal)
CPT/HCPCS: 81001; 81025; 87086; 99283

== ENCOUNTER 2020-12-21 22:35 | Emergency (ER) | payer OTHER, SELFPAY ==
[2020-12-21 22:40] VITALS: BP 170/90; PULSE 93; RESP 18; TEMP 37.6; O2SAT 100
--- NOTE | 2020-12-22 00:05 | ED_ITS ---
HPI - Recheck/Abnormal Lab/Rx General Chief Complaint: Recheck/Abnormal Lab/Rx Stated Complaint: states given wrong medication, worsening symptoms Time Seen by Provider: 12/21/20 23:51 Source: patient Mode of arrival: Ambulatory History of Present Illness HPI narrative: Patient is a 45-year-old female who presents with need for antibiotic prescription. She was actually seen and evaluated here on 12/15/2020 thought to have a UTI initially prescribed Keflex however culture came back as vaginalis Checo was called in to pharmacy I am not sure which 1 but she says she never got it. Since then she has had nausea vomiting body aches she g enerally does not feel well. She is currently afebrile here. She has been sleeping. At this time she would just like her prescription and go home. MD complaint: needs IV antibiotics Related Data Home Medications Medication Instructions Recorded Confirmed ibuprofen 200 mg tablet 600 mg PO TID tab 06/29/20 09/02/20 Previous Rx's Medication Instructions Recorded amitriptyline 10 mg tablet 20 mg PO BEDTIME PRN #60 tab 09/02/20 duloxetine 60 mg capsule,delayed 60 mg PO DAILY #90 cap 09/02/20 release buspirone 5 mg tablet 10 mg PO TID #180 tab 09/14/20 escitalopram oxalate 20 mg tablet See Rx Instructions .ROUTE 11/21/20 .COMPLEX #90 tab cephalexin 500 mg PO BID 7 Days #14 cap 12/15/20 fluconazole [Diflucan] 100 mg PO DAILY #2 tab 12/15/20 metronidazole [Flagyl] 500 mg PO Q8H #21 tab 12/22/20 Allergies Allergy/AdvReac Type Severity Reaction Status Date / Time No Known Drug Allergies Allergy Verified 09/02/20 09:51 Review of Systems Review of Systems ROS Unobtainable: All systems reviewed & are unremarkable except as noted in HPI and below Constitutional Constitutional: Reports as per HPI and Denies frequent falls ENT Ears, Nose, Mouth, and Throat: Denies dizziness Cardiovascular Cardiovascular: Denies dyspnea and Denies dyspnea on exertion Respiratory Respiratory: Denies cough, Denies dyspnea, Denies dyspnea on exertion and Denies wheezing Gastrointestinal Gastrointestinal: Denies abdominal pain, Reports nausea and Reports vomiting Genitourinary Genitourinary: Reports as per HPI Genitourinary: Reports as per HPI Musculoskeletal Musculoskeletal: Denies numbness Integumentary/Breasts Skin/Breast: Denies pruritus, Denies erythema, Denies rash and Denies wounds Neurologic Neurologic: Denies behavioral changes, Denies confusion, Denies dizziness, Denies frequent falls and Denies numbness Psychiatric Psychiatric: Denies behavioral changes and Denies confusion Allergic/Immunologic Allergic/Immunologic: Denies wheezing Patient History Medical History Anxiety Depression (~2002) Heavy menstrual period (~1991) Joint pain Musculoskeletal pain (~2017) Ovarian cyst (~2002) Painful menstrual periods (~1991) Rheumatoid arthritis (~2018) Shoulder pain (~2014) Swelling of finger joint of right hand (~05/2019) Surgical History Anesthesia H/O breast reconstruction H/O knee surgery History of Achilles tendon repair (~2010) History of cholecystectomy (~2017) Family History Father History of heart disease Hypertension Hyperlipidemia Mother Cancer History of heart disease Hypertension Hyperlipidemia Mental health problem Lymphoma Grandfather History of blood clots Grandmother Diabetes mellitus History of heart disease Hypertension Hyperlipidemia Stroke Grandfather Cancer Grandmother Alcoholism Social History Smoking Status: Current every day smoker Smoking Status: Current every day smoker tobacco type: vaping alcohol intake frequency: a few times a week Substance Use Type: does not use Exam Initial Vital Signs Initial Vital Signs: Vital Signs Temperature 99.7 F H 12/21/20 22:40 Pulse Rate 93 H 12/21/20 22:40 Respiratory Rate 18 12/21/20 22:40 Blood Pressure 170/90 H 12/21/20 22:40 Pulse Oximetry 100 12/21/20 22:40 GENERAL: Sleeping easily arousable HEENT: Head atraumatic,EOMI, pupils reactive, face symmetric, moist mucous membranes CARDIOVASCULAR: Regular rate and rhythm without murmurs, rubs or gallops. RESPIRATORY: Breath sounds equal bilaterally, no wheezes rales or rhonchi. ABDOMEN: Soft, nontender. Normoactive bowel sounds all 4 quadrants. No guarding or rebound. : No CVA tenderness EXTREMITIES: Normal range of motion, no clubbing or edema. Neurovascularly intact NEUROLOGICAL: Alert and oriented x4.Normal gait and speech. SKIN: Warm, dry, no laceration, no petechiae, no rashes or lesions. Course Orders Ordered: Discontinued Medications Metronidazole (Metronidazole 500 Mg Tablet) 500 mg PO NOW ONE Stop: 12/21/20 23:56 Vital Signs Vital signs: Vital Signs - 8 hr 12/21/20 22:40 Temperature 99.7 F H Pulse Rate 93 H Respiratory Rate 18 Blood Pressure 170/90 H Pulse Oximetry 100 MDM - Recheck/Abnormal Lab/Rx MDM Narrative Medical decision making narrative: Patient has mild low-grade fever. Culture does show a Gardnerella vaginalis, her ongoing symptoms may be related to this infection. At this time she would like to get her antibiotic and go home. She does not appear to be septic or have severe infection. Will give her her 1st dose in the ED and a new prescription. Discharge Plan Departure Patient Disposition: Home Clinical Impression: Gardnerella vaginalis infection Instructions: Bacterial Vaginosis Activity Restrictions/Additional Instructions: *You have been diagnosed with gardernella vaginalis *What to do: At this time please start taking antibiotic as prescribed . This infection may be causing some appear symptoms. Give the antibiotic 24-48 hours until you start feeling better. However if you are not feeling better and feeling were she need to be re-evaluated *Continue to take medications as directed Flagyl 500 mg twice a day for 7 days *Follow up with your primary care provider in 2-3 days *Return to ER if you should have persistent vomiting, nausea, pain or any new, worsening or concerning symptoms Prescriptions: New metronidazole [Flagyl] 500 mg tablet 500 mg PO Q8H Qty: 21 RF: 0 No Action escitalopram oxalate 20 mg tablet See Rx Instructions .ROUTE .COMPLEX Qty: 90 RF: 0 ibuprofen 200 mg tablet 600 mg PO TID RF: 0 duloxetine [Cymbalta] 60 mg capsule,delayed release(DR/EC) 60 mg PO DAILY Qty: 90 RF: 0 amitriptyline 10 mg tablet 20 mg PO BEDTIME PRN (Reason: sleep) Qty: 60 RF: 0 buspirone 5 mg tablet 10 mg PO TID Qty: 180 RF: 1 cephalexin 500 mg capsule 500 mg PO BID 7 Days Qty: 14 RF: 0 fluconazole [Diflucan] 100 mg tablet 100 mg PO DAILY Qty: 2 RF: 0 Referrals: Sharon De La Torre DO [Primary Care Provider] -
== END 2020-12-22 00:27 | disposition home or self-care (01) ==
PROVIDERS: Emergency Provider Emergency Medicine; PCP Family Medicine
DX: N76.0 Acute vaginitis (principal); R50.9 Fever, unspecified
CPT/HCPCS: 99281

== ENCOUNTER 2021-03-15 22:04 | Emergency (ER) | payer OTHER, SELFPAY ==
[2021-03-15 22:14] VITALS: BP 144/67; PULSE 84; RESP 18; TEMP 36.9; O2SAT 99
[2021-03-15 22:48] LABS: Appearance Urine UA Turbid; Bilirubin Urine UA Negative (NEGATIVE); Color Urine UA RED; Glucose Urine UA NEGATIVE (Negative); Occult Blood Urine UA 3+ (Negative); Protein Urine UA 3+ (Negative); Specific Gravity Urine UA >=1.030 (1.000-1.035); pH Urine UA 5 (4.5-8.0)
[2021-03-15 22:49] LABS: RBC Urine >100/HPF (0-5/HPF)
[2021-03-15 22:50] LABS: Bacteria Urine Many (>30); Culture Indicated Urine Specimen Cultured; Renal Epithelial Cells Urine 1-5/HPF (0-1/HPF); Squamous Epithelial Cell Urine 1-5 /HPF (0-5/HPF); WBC Urine >100/HPF (0-5/HPF)
--- NOTE | 2021-03-15 23:54 | ED.FEMALEGU ---
HPI - Female Genitourinary General Chief complaint: Urogenital-Female Stated complaint: Blood in Urine Time Seen by Provider: 03/15/21 23:49 Source: patient and old records reviewed Mode of arrival: Ambulatory Limitations: no limitations History of Present Illness HPI Narrative: This a 45-year-old female comes emergency department with complaint of blood in her urine, dysuria, urgency and sense of incomplete emptying. Patient has had UTIs in the past. She states this feels similar. She has not had a fever in the last couple days. She has had some lower abdominal discomfort. Particularly in the suprapubic area. She denies any back or flank pain. She denies any diarrhea constipation. She denies any other vaginal bleeding discharge. Patient denies any major medical issues. She does take Lexapro daily. She denies any allergies. She does state that she had some kind of resistance or had to have an antibiotic change once for prior UTI. She states it was here and that we changed her medication. Related Data Home Medications Medication Instructions Recorded Confirmed ibuprofen 200 mg tablet 600 mg PO TID tab 06/29/20 09/02/20 Previous Rx's Medication Instructions Recorded amitriptyline 10 mg tablet 20 mg PO BEDTIME PRN #60 tab 09/02/20 duloxetine 60 mg capsule,delayed 60 mg PO DAILY #90 cap 09/02/20 release (Cymbalta) fluconazole 100 mg tablet 100 mg PO DAILY #2 tab 12/15/20 (Diflucan) metronidazole 500 mg tablet 500 mg PO Q8H #21 tab 12/22/20 (Flagyl) escitalopram oxalate 20 mg tablet See Rx Instructions .ROUTE 02/22/21 .COMPLEX #90 tab buspirone 5 mg tablet See Rx Instructions .ROUTE 03/03/21 .COMPLEX #180 tab ciprofloxacin HCl 500 mg tablet 500 mg PO Q12H #10 tab 03/16/21 phenazopyridine 200 mg tablet 200 mg PO TID PRN #6 tab 03/16/21 (Pyridium) Allergies Allergy/AdvReac Type Severity Reaction Status Date / Time No Known Drug Allergies Allergy Verified 09/02/20 09:51 Review of Systems Review of Systems ROS Unobtainable: All systems reviewed & are unremarkable except as noted in HPI and below Patient History Medical History Anxiety Depression (~2002) Heavy menstrual period (~1991) Joint pain Musculoskeletal pain (~2018) Ovarian cyst (~2002) Painful menstrual periods (~1991) Rheumatoid arthritis (~2018) Shoulder pain (~2014) Swelling of finger joint of right hand (~05/2019) Surgical History Anesthesia H/O breast reconstruction H/O knee surgery History of Achilles tendon repair (~2010) History of cholecystectomy (~2017) Family History Father History of heart disease Hypertension Hyperlipidemia Mother Cancer History of heart disease Hypertension Hyperlipidemia Mental health problem Lymphoma Grandfather History of blood clots Grandmother Diabetes mellitus History of heart disease Hypertension Hyperlipidemia Stroke Grandfather Cancer Grandmother Alcoholism tobacco type: vaping alcohol intake frequency: a few times a week Substance Use Type: does not use Exam Narrative Exam Narrative: GENERAL: Alert and oriented x three, female in mild distress. HEENT: Head normocephalic, atraumatic, EOMI, pupils reactive, face symmetric, moist mucous membranes NECK: Supple, full range of motion CARDIOVASCULAR: Regular rate and rhythm without murmurs, rubs or gallops. RESPIRATORY: Breath sounds equal bilaterally, no wheezes rales or rhonchi. ABDOMEN: Soft, mild suprapubic tenderness. Normoactive bowel sounds all 4 quadrants. No guarding or rebound, rigidity, no mass : No bilateral CVA tenderness EXTREMITIES: Normal range of motion, no clubbing or edema. Neurovascularly intact NEUROLOGICAL: Cranial nerves II through XII grossly intact. Moving all extremities SKIN: Warm, dry, no petechiae, no rashes or lesions. Initial Vital Signs Initial Vital Signs: Vital Signs Temperature 98.4 F 03/15/21 22:14 Pulse Rate 84 03/15/21 22:14 Respiratory Rate 18 03/15/21 22:14 Blood Pressure 144/67 H 03/15/21 22:14 Pulse Oximetry 99 03/15/21 22:14 Course Orders Ordered: ED Orders 03/15/21 22:15 Urinalysis and Microscopic Stat Urine Culture Stat Discontinued Medications Ciprofloxacin (Ciprofloxacin 250 Mg Tablet) 500 mg PO NOW ONE Stop: 03/16/21 00:00 Last Admin: 03/16/21 00:06 Dose: 500 mg Documented by: JASWINDER Phenazopyridine HCl (Phenazopyridine 100 Mg Tablet) 200 mg PO NOW ONE Stop: 03/16/21 00:00 Last Admin: 03/16/21 00:05 Dose: 200 mg Documented by: JASWINDER Vital Signs Vital signs: Vital Signs - 8 hr 03/16/21 00:10 Pulse Rate 79 Respiratory Rate 20 Blood Pressure 134/74 Pulse Oximetry 99 MDM - Female Genitourinary Lab Data Labs: Lab Results 03/15/21 Range/Units 22:15 Urine Color Red Urine Appearance Turbid Urine pH 5 (4.5-8.0) Ur Specific [place] >=1.030 H (1.000-1.035) Urine Protein 3+ H (Negative) Urine Glucose (UA) Negative (Negative) g/dL Urine Ketones Not Reportable Urine Occult Blood 3+ H (Negative) Urine Nitrate Not Reportable Urine Bilirubin Negative (NEGATIVE) Urine Urobilinogen Not Reportable Ur Leukocyte Esterase Not Reportable Urine RBC >100/hpf H (0-5/HPF) Urine WBC >100/hpf H (0-5/HPF) Ur Squamous Epith Cells 1-5 /hpf (0-5/HPF) Ur Renal Epithelial Cell 1-5/hpf H (0-1/HPF) Urine Bacteria Many (>30) H (None) Ur Culture Indicated? Specimen cultured Micro UA Comment * [facility] Narrative Medical decision making narrative: Patient's past cultures are positive for E coli in July of 2020 an presumptive Gardnerella vaginalis in November of 2020. Patient's symptoms seem much more similar to UTI. Her urinalysis today shows quite a bit of blood but also greater than 100 wbc's, and she has many bacteria where as her urinalysis in November 2020 only had 1 bacteria and only 5-10 wbc's. Patient was given a prescription for Cipro preferentially over Flagyl. Discharge Plan Departure Patient Disposition: Home Clinical Impression: UTI (urinary tract infection) Instructions: DI for Urinary Retention in Women Activity Restrictions/Additional Instructions: Follow-up if you are not having improvement over the next 2-3 days. Take antibiotics until completely gone. Please start prescription tomorrow morning. You have received your 1st dose here in the emergency department. You may take Pyridium 1 tablet every 8 hours as needed for bladder spasm. This medication will make your urine bright orange. Prescription sent to [facility] in [place]. Please return for fevers, new or worsening abdominal, back or flank pain, persistent vomiting, inability to urinate, black or bloody stools or other new or concerning symptoms. Prescriptions: New ciprofloxacin HCl 500 mg tablet 500 mg PO Q12H Qty: 10 RF: 0 phenazopyridine [Pyridium] 200 mg tablet 200 mg PO TID PRN (Reason: pain) Qty: 6 RF: 0 No Action escitalopram oxalate 20 mg tablet See Rx Instructions .ROUTE .COMPLEX Qty: 90 RF: 2 buspirone 5 mg tablet See Rx Instructions .ROUTE .COMPLEX Qty: 180 RF: 0 ibuprofen 200 mg tablet 600 mg PO TID RF: 0 duloxetine [Cymbalta] 60 mg capsule,delayed release(DR/EC) 60 mg PO DAILY Qty: 90 RF: 0 amitriptyline 10 mg tablet 20 mg PO BEDTIME PRN (Reason: sleep) Qty: 60 RF: 0 metronidazole [Flagyl] 500 mg tablet 500 mg PO Q8H Qty: 21 RF: 0 fluconazole [Diflucan] 100 mg tablet 100 mg PO DAILY Qty: 2 RF: 0 Referrals: Sharon De La Torre DO [Primary Care Provider] -
[2021-03-16] MEDS: PHENAZOPYRIDINE 100 MG TABLET 200 MG PO (00:05)
[2021-03-16] MEDS: CIPROFLOXACIN 250 MG TABLET 500 MG PO (00:06)
[2021-03-16 00:10] VITALS: BP 134/74; PULSE 79; RESP 20; O2SAT 99
== END 2021-03-16 00:11 | disposition home or self-care (01) ==
PROVIDERS: Emergency Provider Emergency Medicine; PCP Family Medicine
DX: N39.0 Urinary tract infection, site not specified (principal); R31.9 Hematuria, unspecified
CPT/HCPCS: 81001; 87077; 87086; 87186; 99283

== ENCOUNTER 2021-11-08 01:21 | Emergency (ER) | payer OTHER, SELFPAY ==
[2021-11-08 01:28] VITALS: BP 158/93; PULSE 93; RESP 18; TEMP 36.9; O2SAT 97; BMI 22.1
--- NOTE | 2021-11-08 01:37 | ED.URI ---
HPI - URI/Sore Throat General Chief Complaint: Upper Respiratory Symptoms Stated Complaint: POSSIBLE STREP THROAT Time Seen by Provider: 11/08/21 01:37 Source: patient Mode of arrival: Ambulatory Limitations: no limitations History of Present Illness HPI Narrative: This is a 45-year-old female who comes in with concern for strep throat. Patient takes Cymbalta but no other daily medications. If had a sore throat for about days, some hoarseness, no fevers, no nasal congestion. Mild cough that was present even before the sore throat. Patient denies any nausea or vomiting. No chest pain or shortness of breath. No difficulty breathing. No rash or other skin changes. Patient states that they have had strep throat in the past, the initial rapid point of care strep started on a was positive but sometimes the throat cultures will return positive later. They have taken Tylenol for pain but none today. Patient has a history of cholecystectomy. Tonsils are still present. Patient does use tobacco, occasional alcohol, denies illicit. Related Data Home Medications Medication Instructions Recorded Confirmed ibuprofen 200 mg tablet 600 mg PO TID tab 06/29/20 10/19/21 prenat.vits,karla,[id number] 1 tab PO DAILY 10/19/21 10/25/21 Previous Rx's Medication Instructions Recorded escitalopram oxalate 20 mg tablet See Rx Instructions .ROUTE 02/22/21 .COMPLEX #90 tab buspirone 5 mg tablet See Rx Instructions .ROUTE 03/03/21 .COMPLEX #180 tab duloxetine 60 mg capsule,delayed 60 mg PO DAILY #90 cap 11/02/21 release (Cymbalta) Allergies Allergy/AdvReac Type Severity Reaction Status Date / Time No Known Drug Allergies Allergy Verified 10/25/21 11:14 Review of Systems Review of Systems ROS Unobtainable: All systems reviewed & are unremarkable except as noted in HPI and below Patient History Medical History Anxiety Depression (~2002) Heavy menstrual period (~1991) Joint pain Musculoskeletal pain (~2017) Ovarian cyst (~2002) Painful menstrual periods (~1991) Rheumatoid arthritis (~2018) Shoulder pain (~2014) Swelling of finger joint of right hand (~05/2019) Surgical History Anesthesia H/O breast reconstruction H/O knee surgery History of Achilles tendon repair (~2010) History of cholecystectomy (~2018) Family History Father History of heart disease Hypertension Hyperlipidemia Mother Cancer History of heart disease Hypertension Hyperlipidemia Mental health problem Lymphoma Grandfather History of blood clots Grandmother Diabetes mellitus History of heart disease Hypertension Hyperlipidemia Stroke Grandfather Cancer Grandmother Alcoholism Social History marital status: number of children: 4 household members: spouse and children lives independently: Yes housing: house pets and animals: Yes (Dogs, aware of toxo and gardening) education level: college occupational status: unemployed current occupational exposures/hazards: No (aware home chemicals) seatbelt use: always water heater temp set < 120 deg: Yes working smoke detector in home: Yes fire extinguisher in home: Yes carbon monox detector in home: Yes firearms in home: No do you feel safe at home: Yes Smoking Status: Current every day smoker second hand exposure: No alcohol intake: former substance use type: does not use during the past year weight has: remained stable well-balanced diet: daily or most days daily servings fruits/ve-4 caffeine: Yes (on occasion but not much, discusssed the 200mg limit) Type(s) of exercise: walking frequency: daily Smoking Status: Current every day smoker tobacco type: e-cigarettes and vaping alcohol intake frequency: a few times a week Substance Use Type: does not use Exam Narrative Exam Narrative: GEN: well nourished, well appearing female, alert and oriented x 3, patient appears to be in mild distress. HEENT: Atraumatic, pupils are equal round reactive to light, extraocular movements are intact, nares are clear, TMs are clear with no fluid, there is no conjunctival pallor. Throat is erythematous without any exudates, erythema, no tonsillar enlargement or uvular deviation. Patient slightly hoarse. Normal speech otherwise. No difficulty with breathing or stridor. HEART: Regular rate and rhythm without murmur, clicks, rubs. LUNGS:Lungs clear to auscultation, no wheezes, rales, crackles, chest moves symmetrically ABD:bowel sounds normal, soft, non-tender, no guarding, rebound, rigidity, no masses noted, no hepatosplenomegaly MSCL: Non-tender,full range of motion, normal gait NEURO:CN 2-12 intact, sensation normal SKIN: No rash, erythema or other skin changes. Initial Vital Signs Initial Vital Signs: Vital Signs Temperature 98.4 F 11/08/21 01:28 Pulse Rate 93 H 11/08/21 01:28 Respiratory Rate 18 11/08/21 01:28 Blood Pressure 158/93 H 11/08/21 01:28 Pulse Oximetry 97 11/08/21 01:28 Course Orders Ordered: ED Orders 11/08/21 01:25 COVID19 -Nasal swab/Pre-Proc Stat 11/08/21 01:29 Throat Culture Stat Discontinued Medications Dexamethasone (Dexamethasone 1 Mg Tablet) 10 mg 0.15 mg/kg (10 mg) PO NOW ONE Stop: 11/08/21 02:19 Last Admin: 11/08/21 02:28 Dose: Not Given Documented by: DBROYLE Dexamethasone (Dexamethasone 10 Mg/Ml Vial) 10 mg PO NOW ONE Stop: 11/08/21 02:24 Last Admin: 11/08/21 02:27 Dose: Not Given Documented by: DBROYLE Vital Signs Vital signs: Vital Signs - 8 hr 11/08/21 01:28 Temperature 98.4 F Pulse Rate 93 H Respiratory Rate 18 Blood Pressure 158/93 H Pulse Oximetry 97 MDM - URI/Sore Throat Lab Data Labs: Lab Results 11/08/21 Range/Units 01:25 SARS-CoV-2 (PCR) Negative (Negative) Point of Care Testing Rapid Strep A Negative [facility] Narrative Medical decision making narrative: 45-year-old female which he states has sometimes atypical strep throat and rapid strep will be negative throat cultures will sometimes be positive. Patient has erythema but no tonsillar enlargement or exudate. Patient does not meet [facility] criteria to initiate antibiotics. COVID swab was also negative here as well as point of care strep throat culture is pending. Discussed with patient plan to give a single dose of dexamethasone which she is agreeable for comfort but patient notes she is . Will defer dexamethasone at this time. Patient culture should return in the next 48 hours and if positive will be contacted to start antibiotics. Patient states she did give a appropriate contact number. Discharge Plan Departure Patient Disposition: Home Clinical Impression: Pharyngitis Instructions: DI for Pharyngitis/Tonsillopharyngitis -- Adult Activity Restrictions/Additional Instructions: Your throat culture is currently pending, these typically result in 24-48 hours and if positive you will be contacted to start antibiotics. You may continue with Tylenol and/or ibuprofen as needed. Some individuals find gargling with warm salt water to be helpful as needed. Please return for rapidly worsening symptoms, inability to swallow your own saliva or liquids, muffled voice, difficulty breathing, stridor or high-pitched wheezing, swelling of your mouth, neck or tongue or other new or concerning symptoms. Prescriptions: No Action escitalopram oxalate 20 mg tablet See Rx Instructions .ROUTE .COMPLEX Qty: 90 2RF Dose Instruction: TAKE 1 TABLET BY MOUTH DAILY Rx Instructions: TAKE 1 TABLET BY MOUTH DAILY buspirone 5 mg tablet See Rx Instructions .ROUTE .COMPLEX Qty: 180 0RF Dose Instruction: TAKE 2 TABLETS BY MOUTH THREE TIMES DAILY Rx Instructions: TAKE 2 TABLETS BY MOUTH THREE TIMES DAILY duloxetine [Cymbalta] 60 mg capsule,delayed release(DR/EC) 60 mg PO DAILY Qty: 90 0RF ibuprofen 200 mg tablet 600 mg PO TID 0RF Hold Instructions: prenat.vits,karla,[id number] Tablet 1 tab PO DAILY 0RF Referrals: Sharon De La Torre DO [Primary Care Provider] -
[2021-11-08 01:58] LABS: COVID19 -Nasal RAPID Negative (Negative)
== END 2021-11-08 02:41 | disposition home or self-care (01) ==
PROVIDERS: Emergency Provider Emergency Medicine; PCP Family Medicine
DX: J02.9 Acute pharyngitis, unspecified (principal); F17.290 Nicotine dependence, other tobacco product, uncomplicated; Z20.822 Contact with and (suspected) exposure to COVID-19
CPT/HCPCS: 87070; 87635; 87880; 99281; 99282; C9803

== ENCOUNTER 2021-11-10 11:31 | Emergency (ER) | payer OTHER, SELFPAY ==
[2021-11-10] VITALS (7 sets, daily range): BP systolic 138–158; BP diastolic 71–107; PULSE 74–97; RESP 16–24; TEMP 36.5; O2SAT 99–100; BMI 23.6
--- NOTE | 2021-11-10 11:43 | DI.RAD.S_ITS ---
PROCEDURE: XR CHEST 1V INDICATIONS: chest pain TECHNIQUE: One view of the chest was acquired. COMPARISON: None. FINDINGS: Surgical changes and devices: Cholecystectomy clips. Lungs and pleura: Lungs are clear. No pleural effusions or pneumothorax. Mediastinum: Mediastinal contours appear normal. Heart size is normal. Bones and chest wall: No suspicious bony lesions. Overlying soft tissues appear unremarkable. IMPRESSION: No acute pulmonary process. Dictated by: Nithya Gonzalez M.D. on 11/10/2021 at 13:14 Approved by: Nithya Gonzalez M.D. on 11/10/2021 at 13:15
[2021-11-10 12:04] LABS: Add Manual Diff / Slide Review NO; Basophils Absolute Auto 100 /uL (0-100); Basophils Percent Auto 0.5 % (0-2); Eosinophils Absolute Auto 200 /uL (0-450); Eosinophils Percent Auto 1.7 % (2-4); Hematocrit 34.8 % (36-46); Hemoglobin 11.8 g/dL (12.0-16.0); Lymphocytes Absolute Auto 2000 /uL (1100-4500); Lymphocytes Percent Auto 17.7 % (25-40); Mean Corpuscular HGB Conc 33.9 % (30-36); Mean Corpuscular Volume 88.5 fL (80-100); Monocytes Absolute Auto 1000 /uL (0-900); Monocytes Percent Auto 8.9 % (3-14); Neutrophils Absolute Auto 8000 /uL (1500-7000); Neutrophils Percent Auto 71.2 % (50-75); Platelet Count 298 X10^3/uL (150-400); Red Blood Cell Count 3.93 X10^6/uL (4.0-5.2); Red Cell Distribution Width 14.2 % (11.6-14.8); White Blood Cell Count 11.3 X10^3/uL (4.5-11.0)
[2021-11-10 12:06] LABS: COVID19 -Nasal RAPID Negative (Negative)
[2021-11-10 12:13] LABS: Alanine Aminotransferase 21 IU/L (<35); Albumin 3.8 g/dL (3.5-5.0); Albumin Globulin Ratio 1.3 (1.0-2.8); Alkaline Phosphatase 48 U/L (38-126); Aspartate Aminotransferase 26 IU/L (14-36); Bilirubin Total 0.3 mg/dL (0.2-1.3); Blood Urea Nitrogen 10 mg/dL (7-17); Calcium 8.6 mg/dL (8.4-10.2); Carbon Dioxide 24 mmol/L (22-32); Chloride 106 mmol/L (98-107); Creatine Kinase 66 U/L (30-135); Estimated Glomerular Filt Rate > 60.0 mL/min (>60); Globulin 2.9 g/dL (1.7-4.1); Glucose 91 mg/dL (70-100); HEMOLYSIS 16 (0-50); Lipase 47 U/L (23-300); Magnesium 1.7 mg/dL (1.6-2.3); Potassium 3.6 mmol/L (3.4-5.1); Sodium 136 mmol/L (137-145); Total Protein 6.7 g/dL (6.3-8.2)
[2021-11-10 12:24] LABS: Troponin I < 0.012 ng/mL (0.01-0.034)
--- NOTE | 2021-11-10 13:51 | ED_ITS ---
HPI - Chest Pain <Alpesh Celaya DO - Last Filed: 11/11/21 07:11> General Chief Complaint: Chest Pain Stated Complaint: chest pain/sore throat Time Seen by Provider: 11/10/21 13:39 Source: patient Mode of arrival: Ambulatory Limitations: no limitations Related Data Home Medications Medication Instructions Recorded Confirmed ibuprofen 200 mg tablet 600 mg PO TID tab 06/29/20 10/19/21 prenat.vits,karla,[id number] 1 tab PO DAILY 10/19/21 10/25/21 Previous Rx's Medication Instructions Recorded escitalopram oxalate 20 mg tablet See Rx Instructions .ROUTE 02/22/21 .COMPLEX #90 tab buspirone 5 mg tablet See Rx Instructions .ROUTE 03/03/21 .COMPLEX #180 tab duloxetine 60 mg capsule,delayed 60 mg PO DAILY #90 cap 11/02/21 release (Cymbalta) Allergies Allergy/AdvReac Type Severity Reaction Status Date / Time No Known Drug Allergies Allergy Verified 10/25/21 11:14 <Valdemar Hilliard PA-C - Last Filed: 11/10/21 18:31> History of Present Illness HPI narrative: This note was opened in error. Please see note from visit on 11/10/2021 <Valdemar Hilliard PA-C - Last Filed: 11/10/21 18:31> Review of Systems Narrative: See HPI. Patient History <Alpesh Celaya DO - Last Filed: 11/11/21 07:11> Medical History Anxiety Depression (~2002) Heavy menstrual period (~1991) Joint pain Musculoskeletal pain (~2017) Ovarian cyst (~2002) Painful menstrual periods (~1991) Rheumatoid arthritis (~2018) Shoulder pain (~2014) Swelling of finger joint of right hand (~05/2019) Surgical History Anesthesia H/O breast reconstruction H/O knee surgery History of Achilles tendon repair (~2010) History of cholecystectomy (~2017) Family History Father History of heart disease Hypertension Hyperlipidemia Mother Cancer History of heart disease Hypertension Hyperlipidemia Mental health problem Lymphoma Grandfather History of blood clots Grandmother Diabetes mellitus History of heart disease Hypertension Hyperlipidemia Stroke Grandfather Cancer Grandmother Alcoholism Social History marital status: number of children: 4 household members: spouse and children lives independently: Yes housing: house pets and animals: Yes (Dogs, aware of toxo and gardening) education level: college occupational status: unemployed current occupational exposures/hazards: No (aware home chemicals) seatbelt use: always water heater temp set < 120 deg: Yes working smoke detector in home: Yes fire extinguisher in home: Yes carbon monox detector in home: Yes firearms in home: No do you feel safe at home: Yes Smoking Status: Current every day smoker second hand exposure: No alcohol intake: former substance use type: does not use during the past year weight has: remained stable well-balanced diet: daily or most days daily servings fruits/ve-4 caffeine: Yes (on occasion but not much, discusssed the 200mg limit) Type(s) of exercise: walking frequency: daily Smoking Status: Current every day smoker tobacco type: e-cigarettes and vaping alcohol intake frequency: a few times a week Substance Use Type: does not use Exam <Alpesh Celaya DO - Last Filed: 11/11/21 07:11> Initial Vital Signs Initial Vital Signs: Vital Signs Temperature 97.7 F 11/10/21 11:39 Pulse Rate 97 H 11/10/21 11:39 Respiratory Rate 16 11/10/21 11:39 Blood Pressure 150/80 H 11/10/21 11:39 Pulse Oximetry 100 11/10/21 11:39 <Valdemar Hilliard PA-C - Last Filed: 11/10/21 18:31> Initial Vital Signs Initial Vital Signs: Vital Signs Temperature 97.7 F 11/10/21 11:39 Pulse Rate 97 H 11/10/21 11:39 Respiratory Rate 16 11/10/21 11:39 Blood Pressure 150/80 H 11/10/21 11:39 Pulse Oximetry 100 11/10/21 11:39 Const General: cooperative and healthy appearing HENMT Throat: tonsils normal, uvula midline and other (Very mild erythema to the posterior oropharynx) Chest Chest: normal inspection of the chest Course <DO Frank Cho Filed: 11/11/21 07:11> Orders Ordered: ED Orders 11/10/21 11:43 XR chest 1V Stat EKG-12 Lead Stat 11/10/21 11:47 COVID19 -Nasal swab/Pre-Proc Stat 11/10/21 11:55 Complete Blood Count AUTO DIFF Stat Comprehensive Metabolic Panel Stat LDH [Lactate Dehydrogenase] Stat Lipase Stat Magnesium Stat Troponin & CK Cardiac Panel Stat Uric Acid Stat 11/10/21 15:26 Urinalysis and Microscopic Stat Vital Signs Vital signs: Vital Signs - 8 hr 11/10/21 11:39 11/10/21 13:33 11/10/21 13:34 Temperature 97.7 F Pulse Rate 97 H 83 80 Respiratory Rate 16 20 18 Blood Pressure 150/80 H 152/84 H Pulse Oximetry 100 100 99 11/10/21 14:00 11/10/21 14:30 11/10/21 15:00 Temperature Pulse Rate 79 80 74 Respiratory Rate 24 18 18 Blood Pressure 158/107 H 153/87 H 140/80 Pulse Oximetry 100 100 99 11/10/21 15:35 Temperature Pulse Rate 85 Respiratory Rate Blood Pressure 138/71 Pulse Oximetry 99 <Valdemar Hilliard PA-C - Last Filed: 11/10/21 18:31> Orders Ordered: ED Orders 11/10/21 11:43 XR chest 1V Stat EKG-12 Lead Stat 11/10/21 11:47 COVID19 -Nasal swab/Pre-Proc Stat 11/10/21 11:55 Complete Blood Count AUTO DIFF Stat Comprehensive Metabolic Panel Stat LDH [Lactate Dehydrogenase] Stat Lipase Stat Magnesium Stat Troponin & CK Cardiac Panel Stat Uric Acid Stat 11/10/21 15:26 Urinalysis and Microscopic Stat Vital Signs Vital signs: Vital Signs - 8 hr 11/10/21 11:39 11/10/21 13:33 11/10/21 13:34 Temperature 97.7 F Pulse Rate 97 H 83 80 Respiratory Rate 16 20 18 Blood Pressure 150/80 H 152/84 H Pulse Oximetry 100 100 99 11/10/21 14:00 11/10/21 14:30 11/10/21 15:00 Temperature Pulse Rate 79 80 74 Respiratory Rate 24 18 18 Blood Pressure 158/107 H 153/87 H 140/80 Pulse Oximetry 100 100 99 11/10/21 15:35 Temperature Pulse Rate 85 Respiratory Rate Blood Pressure 138/71 Pulse Oximetry 99 MDM - Chest Pain <Alpesh Celaya DO - Last Filed: 11/11/21 07:11> Lab Data Result diagrams: 11/10/21 11:55 11/10/21 11:55 Labs: Lab Results 11/10/21 11/10/21 11/10/21 Range/Units 11:47 11:55 11:55 WBC 11.3 H (4.5-11.0) X10^3/uL RBC 3.93 L (4.0-5.2) X10^6/uL Hgb 11.8 L (12.0-16.0) g/dL Hct 34.8 L (36-46) % MCV 88.5 (80-100) fL MCH 30.0 (26-34) PG MCHC 33.9 (30-36) % RDW 14.2 (11.6-14.8) % Plt Count 298 (150-400) X10^3/uL Neut % (Auto) 71.2 (50-75) % Lymph % (Auto) 17.7 L (25-40) % [place] % (Auto) 8.9 (3-14) % Eos % (Auto) 1.7 L (2-4) % Baso % (Auto) 0.5 (0-2) % Neut # (Auto) 8000 H (2712-9938) /uL Lymph # (Auto) 2000 (5141-6464) /uL [place] # (Auto) 1000 H (0-900) /uL Eos # (Auto) 200 (0-450) /uL Baso # (Auto) 100 (0-100) /uL Sodium 136 L (137-145) mmol/L Potassium 3.6 (3.4-5.1) mmol/L Chloride 106 (98-107) mmol/L Carbon Dioxide 24 (22-32) mmol/L BUN 10 (7-17) mg/dL Creatinine 0.40 L (0.52-1.04) mg/dL Estimated GFR > 60.0 (>60) mL/min BUN/Creatinine Ratio 25.0 H (6-22) Glucose 91 (70-100) mg/dL Uric Acid (2.5-6.2) mg/dL Calcium 8.6 (8.4-10.2) mg/dL Magnesium 1.7 (1.6-2.3) mg/dL Total Bilirubin 0.3 (0.2-1.3) mg/dL AST 26 (14-36) IU/L ALT 21 (<35) IU/L Alkaline Phosphatase 48 (38-126) U/L Lactate Dehydrogenase (313-618) U/L Total Creatine Kinase 66 (30-135) U/L CK-MB (CK-2) TNP CK-MB (CK-2) Rel Index TNP Troponin I < 0.012 (0.01-0.034) ng/mL Total Protein 6.7 (6.3-8.2) g/dL Albumin 3.8 (3.5-5.0) g/dL Globulin 2.9 (1.7-4.1) g/dL Albumin/Globulin Ratio 1.3 (1.0-2.8) Lipase 47 (23-300) U/L Urine Color Urine Appearance Urine pH (4.5-8.0) Ur Specific Lamar (1.000-1.035) Urine Protein (Negative) Urine Glucose (UA) (Negative) g/dL Urine Ketones (NEGATIVE) Urine Occult Blood (Negative) Urine Nitrate (Negative) Urine Bilirubin (NEGATIVE) Urine Urobilinogen (0.2) E.U./dL Ur Leukocyte Esterase (NEGATIVE) Urine RBC (0-5/HPF) Urine WBC (0-5/HPF) Ur Squamous Epith Cells (0-5/HPF) Urine Bacteria (None) Ur Culture Indicated? SARS-CoV-2 (PCR) Negative (Negative) 11/10/21 11/10/21 11/10/21 Range/Units 11:55 11:55 15:26 WBC (4.5-11.0) X10^3/uL RBC (4.0-5.2) X10^6/uL Hgb (12.0-16.0) g/dL Hct (36-46) % MCV (80-100) fL MCH (26-34) PG MCHC (30-36) % RDW (11.6-14.8) % Plt Count (150-400) X10^3/uL Neut % (Auto) (50-75) % Lymph % (Auto) (25-40) % [place] % (Auto) (3-14) % Eos % (Auto) (2-4) % Baso % (Auto) (0-2) % Neut # (Auto) (0441-4034) /uL Lymph # (Auto) (9907-7111) /uL [place] # (Auto) (0-900) /uL Eos # (Auto) (0-450) /uL Baso # (Auto) (0-100) /uL Sodium (137-145) mmol/L Potassium (3.4-5.1) mmol/L Chloride (98-107) mmol/L Carbon Dioxide (22-32) mmol/L BUN (7-17) mg/dL Creatinine (0.52-1.04) mg/dL Estimated GFR (>60) mL/min BUN/Creatinine Ratio (6-22) Glucose (70-100) mg/dL Uric Acid 2.4 L (2.5-6.2) mg/dL Calcium (8.4-10.2) mg/dL Magnesium (1.6-2.3) mg/dL Total Bilirubin (0.2-1.3) mg/dL AST (14-36) IU/L ALT (<35) IU/L Alkaline Phosphatase (38-126) U/L Lactate Dehydrogenase 613 (313-618) U/L Total Creatine Kinase (30-135) U/L CK-MB (CK-2) CK-MB (CK-2) Rel Index Troponin I (0.01-0.034) ng/mL Total Protein (6.3-8.2) g/dL Albumin (3.5-5.0) g/dL Globulin (1.7-4.1) g/dL Albumin/Globulin Ratio (1.0-2.8) Lipase (23-300) U/L Urine Color Yellow Urine Appearance Clear Urine pH 6.5 (4.5-8.0) Ur Specific Lamar 1.015 (1.000-1.035) Urine Protein Negative (Negative) Urine Glucose (UA) Trace H (Negative) g/dL Urine Ketones Negative (NEGATIVE) Urine Occult Blood Negative (Negative) Urine Nitrate Negative (Negative) Urine Bilirubin Negative (NEGATIVE) Urine Urobilinogen 0.2 (0.2) E.U./dL Ur Leukocyte Esterase Negative (NEGATIVE) Urine RBC 0-1/hpf D (0-5/HPF) Urine WBC 1-5/hpf (0-5/HPF) Ur Squamous Epith Cells 5-10 /hpf H (0-5/HPF) Urine Bacteria None seen (None) Ur Culture Indicated? Cult not indicated SARS-CoV-2 (PCR) (Negative) <Valdemar Hilliard PA-C - Last Filed: 11/10/21 18:31> Lab Data Labs: Lab Results 11/10/21 11/10/21 11/10/21 Range/Units 11:47 11:55 11:55 WBC 11.3 H (4.5-11.0) X10^3/uL RBC 3.93 L (4.0-5.2) X10^6/uL Hgb 11.8 L (12.0-16.0) g/dL Hct 34.8 L (36-46) % MCV 88.5 (80-100) fL MCH 30.0 (26-34) PG MCHC 33.9 (30-36) % RDW 14.2 (11.6-14.8) % Plt Count 298 (150-400) X10^3/uL Neut % (Auto) 71.2 (50-75) % Lymph % (Auto) 17.7 L (25-40) % [place] % (Auto) 8.9 (3-14) % Eos % (Auto) 1.7 L (2-4) % Baso % (Auto) 0.5 (0-2) % Neut # (Auto) 8000 H (8314-3532) /uL Lymph # (Auto) 2000 (6148-8501) /uL [place] # (Auto) 1000 H (0-900) /uL Eos # (Auto) 200 (0-450) /uL Baso # (Auto) 100 (0-100) /uL Sodium 136 L (137-145) mmol/L Potassium 3.6 (3.4-5.1) mmol/L Chloride 106 (98-107) mmol/L Carbon Dioxide 24 (22-32) mmol/L BUN 10 (7-17) mg/dL Creatinine 0.40 L (0.52-1.04) mg/dL Estimated GFR > 60.0 (>60) mL/min BUN/Creatinine Ratio 25.0 H (6-22) Glucose 91 (70-100) mg/dL Uric Acid (2.5-6.2) mg/dL Calcium 8.6 (8.4-10.2) mg/dL Magnesium 1.7 (1.6-2.3) mg/dL Total Bilirubin 0.3 (0.2-1.3) mg/dL AST 26 (14-36) IU/L ALT 21 (<35) IU/L Alkaline Phosphatase 48 (38-126) U/L Lactate Dehydrogenase (313-618) U/L Total Creatine Kinase 66 (30-135) U/L CK-MB (CK-2) TNP CK-MB (CK-2) Rel Index TNP Troponin I < 0.012 (0.01-0.034) ng/mL Total Protein 6.7 (6.3-8.2) g/dL Albumin 3.8 (3.5-5.0) g/dL Globulin 2.9 (1.7-4.1) g/dL Albumin/Globulin Ratio 1.3 (1.0-2.8) Lipase 47 (23-300) U/L Urine Color Urine Appearance Urine pH (4.5-8.0) Ur Specific Lam[place] (1.000-1.035) Urine Protein (Negative) Urine Glucose (UA) (Negative) g/dL Urine Ketones (NEGATIVE) Urine Occult Blood (Negative) Urine Nitrate (Negative) Urine Bilirubin (NEGATIVE) Urine Urobilinogen (0.2) E.U./dL Ur Leukocyte Esterase (NEGATIVE) Urine RBC (0-5/HPF) Urine WBC (0-5/HPF) Ur Squamous Epith Cells (0-5/HPF) Urine Bacteria (None) Ur Culture Indicated? SARS-CoV-2 (PCR) Negative (Negative) 11/10/21 11/10/21 11/10/21 Range/Units 11:55 11:55 15:26 WBC (4.5-11.0) X10^3/uL RBC (4.0-5.2) X10^6/uL Hgb (12.0-16.0) g/dL Hct (36-46) % MCV (80-100) fL MCH (26-34) PG MCHC (30-36) % RDW (11.6-14.8) % Plt Count (150-400) X10^3/uL Neut % (Auto) (50-75) % Lymph % (Auto) (25-40) % [place] % (Auto) (3-14) % Eos % (Auto) (2-4) % Baso % (Auto) (0-2) % Neut # (Auto) (0939-2943) /uL Lymph # (Auto) (9169-8417) /uL [place] # (Auto) (0-900) /uL Eos # (Auto) (0-450) /uL Baso # (Auto) (0-100) /uL Sodium (137-145) mmol/L Potassium (3.4-5.1) mmol/L Chloride (98-107) mmol/L Carbon Dioxide (22-32) mmol/L BUN (7-17) mg/dL Creatinine (0.52-1.04) mg/dL Estimated GFR (>60) mL/min BUN/Creatinine Ratio (6-22) Glucose (70-100) mg/dL Uric Acid 2.4 L (2.5-6.2) mg/dL Calcium (8.4-10.2) mg/dL Magnesium (1.6-2.3) mg/dL Total Bilirubin (0.2-1.3) mg/dL AST (14-36) IU/L ALT (<35) IU/L Alkaline Phosphatase (38-126) U/L Lactate Dehydrogenase 613 (313-618) U/L Total Creatine Kinase (30-135) U/L CK-MB (CK-2) CK-MB (CK-2) Rel Index Troponin I (0.01-0.034) ng/mL Total Protein (6.3-8.2) g/dL Albumin (3.5-5.0) g/dL Globulin (1.7-4.1) g/dL Albumin/Globulin Ratio (1.0-2.8) Lipase (23-300) U/L Urine Color Yellow Urine Appearance Clear Urine pH 6.5 (4.5-8.0) Ur Specific [place] 1.015 (1.000-1.035) Urine Protein Negative (Negative) Urine Glucose (UA) Trace H (Negative) g/dL Urine Ketones Negative (NEGATIVE) Urine Occult Blood Negative (Negative) Urine Nitrate Negative (Negative) Urine Bilirubin Negative (NEGATIVE) Urine Urobilinogen 0.2 (0.2) E.U./dL Ur Leukocyte Esterase Negative (NEGATIVE) Urine RBC 0-1/hpf D (0-5/HPF) Urine WBC 1-5/hpf (0-5/HPF) Ur Squamous Epith Cells 5-10 /hpf H (0-5/HPF) Urine Bacteria None seen (None) Ur Culture Indicated? Cult not indicated SARS-CoV-2 (PCR) (Negative) Discharge Plan Departure Patient Disposition: Home Clinical Impression: Acute viral pharyngitis, High blood pressure affecting in second trimester, antepartum Instructions: Viral Pharyngitis Activity Restrictions/Additional Instructions: Thank you for coming to the [facility] emergency department. As we discussed I suspect the sore throat your experiencing is viral in nature, please read the test instructions for wheezing and treat the symptoms. The chest x-ray showed no abnormality in her lungs or heart. EKG showed no evidence of a heart attack. Your lab work showed no acute concerning findings. Your blood pressure was noted to be slightly elevated and I spoke with Dr. Gurrola who works with Dr. Shearer and they stated that they will have a triage nurse call you to arrange for an earlier follow-up visit to monitor the blood pressure. The sore throat should improve over time. Prescriptions: No Action escitalopram oxalate 20 mg tablet See Rx Instructions .ROUTE .COMPLEX Qty: 90 2RF Dose Instruction: TAKE 1 TABLET BY MOUTH DAILY Rx Instructions: TAKE 1 TABLET BY MOUTH DAILY buspirone 5 mg tablet See Rx Instructions .ROUTE .COMPLEX Qty: 180 0RF Dose Instruction: TAKE 2 TABLETS BY MOUTH THREE TIMES DAILY Rx Instructions: TAKE 2 TABLETS BY MOUTH THREE TIMES DAILY duloxetine [Cymbalta] 60 mg capsule,delayed release(DR/EC) 60 mg PO DAILY Qty: 90 0RF ibuprofen 200 mg tablet 600 mg PO TID 0RF Hold Instructions: prenat.vits,karla,[id number] Tablet 1 tab PO DAILY 0RF Referrals: Sharon De La Torre DO [Primary Care Provider] - ED Sign-out <Alpesh Celaya DO - Last Filed: 11/11/21 07:11> Cosign ED Attending Naresh Attestation: I was immediately available in the department for consultation. This documentation has been reviewed and I agree with assessment and plan. Supervised by Alpesh Celaya DO
--- NOTE | 2021-11-10 15:01 | ED_ITS ---
HPI - URI/Sore Throat <Valdemar Hilliard PA-C - Last Filed: 11/10/21 18:15> General Chief Complaint: Chest Pain Stated Complaint: chest pain/sore throat Time Seen by Provider: 11/10/21 13:39 Source: patient Mode of arrival: Ambulatory History of Present Illness HPI Narrative: This is a 45-year-old, 14 weeks , female presents to the emergency department due to continued sore throat. Patient has had a sore throat for a total of 5 days. Denies any nausea, vomiting, fevers, significant difficulty breathing or swallowing, or any other concerning signs or symptoms. Patient states she has some mild chest discomfort which has worsened with her coughing. Denies a significantly productive cough. Patient is seeing a OB as directed regarding her . Related Data Home Medications Medication Instructions Recorded Confirmed ibuprofen 200 mg tablet 600 mg PO TID tab 06/29/20 10/19/21 prenat.vits,karla,kpw-mibr-uwseh 1 tab PO DAILY 10/19/21 10/25/21 Previous Rx's Medication Instructions Recorded escitalopram oxalate 20 mg tablet See Rx Instructions .ROUTE 02/22/21 .COMPLEX #90 tab buspirone 5 mg tablet See Rx Instructions .ROUTE 03/03/21 .COMPLEX #180 tab duloxetine 60 mg capsule,delayed 60 mg PO DAILY #90 cap 11/02/21 release (Cymbalta) Allergies Allergy/AdvReac Type Severity Reaction Status Date / Time No Known Drug Allergies Allergy Verified 10/25/21 11:14 Review of Systems <Valdemar Hilliard PA-C - Last Filed: 11/10/21 18:15> Review of Systems Narrative: See HPI Patient History <Valdemar Hilliard PA-C - Last Filed: 11/10/21 18:15> Medical History Anxiety Depression (~2002) Heavy menstrual period (~1991) Joint pain Musculoskeletal pain (~2017) Ovarian cyst (~2002) Painful menstrual periods (~1991) Rheumatoid arthritis (~2018) Shoulder pain (~2014) Swelling of finger joint of right hand (~05/2019) Surgical History Anesthesia H/O breast reconstruction H/O knee surgery History of Achilles tendon repair (~2010) History of cholecystectomy (~2018) Family History Father History of heart disease Hypertension Hyperlipidemia Mother Cancer History of heart disease Hypertension Hyperlipidemia Mental health problem Lymphoma Grandfather History of blood clots Grandmother Diabetes mellitus History of heart disease Hypertension Hyperlipidemia Stroke Grandfather Cancer Grandmother Alcoholism Social History marital status: number of children: 4 household members: spouse and children lives independently: Yes housing: house pets and animals: Yes (Dogs, aware of toxo and gardening) education level: college occupational status: unemployed current occupational exposures/hazards: No (aware home chemicals) seatbelt use: always water heater temp set < 120 deg: Yes working smoke detector in home: Yes fire extinguisher in home: Yes carbon monox detector in home: Yes firearms in home: No do you feel safe at home: Yes Smoking Status: Current every day smoker second hand exposure: No alcohol intake: former substance use type: does not use during the past year weight has: remained stable well-balanced diet: daily or most days daily servings fruits/ve-4 caffeine: Yes (on occasion but not much, discusssed the 200mg limit) Type(s) of exercise: walking frequency: daily Smoking Status: Current every day smoker tobacco type: e-cigarettes and vaping alcohol intake frequency: a few times a week Substance Use Type: does not use Exam <Valdemar Hilliard PA-C - Last Filed: 11/10/21 18:15> Initial Vital Signs Initial Vital Signs: Vital Signs Temperature 97.7 F 11/10/21 11:39 Pulse Rate 97 H 11/10/21 11:39 Respiratory Rate 16 11/10/21 11:39 Blood Pressure 150/80 H 11/10/21 11:39 Pulse Oximetry 100 11/10/21 11:39 Const General: cooperative and healthy appearing HENMT Throat: tonsils normal, uvula midline and other (very mild erythema to posterior oropharynx) Chest Chest: normal inspection of the chest and normal palpation of entire chest wall Resp Effort & Inspection: normal respiratory effort and able to speak in complete sentences Cardio Rate: regular rate Rhythm: regular rhythm <Alpesh Celaya DO - Last Filed: 11/11/21 07:24> Initial Vital Signs Initial Vital Signs: Vital Signs Temperature 97.7 F 11/10/21 11:39 Pulse Rate 97 H 11/10/21 11:39 Respiratory Rate 16 11/10/21 11:39 Blood Pressure 150/80 H 11/10/21 11:39 Pulse Oximetry 100 11/10/21 11:39 Course <Valdemar Hilliard PA-C - Last Filed: 11/10/21 18:15> Orders Ordered: ED Orders 11/10/21 11:43 XR chest 1V Stat EKG-12 Lead Stat 11/10/21 11:47 COVID19 -Nasal swab/Pre-Proc Stat 11/10/21 11:55 Complete Blood Count AUTO DIFF Stat Comprehensive Metabolic Panel Stat LDH [Lactate Dehydrogenase] Stat Lipase Stat Magnesium Stat Troponin & CK Cardiac Panel Stat Uric Acid Stat 11/10/21 15:26 Urinalysis and Microscopic Stat Consultations Consultation #1: [id number]: Spoke with Dr. Gurrola, VETERINARY TECH[employer]ICIAN IN[employer], about patient's blood pressure values. Dr. Gurroal will have the triage nurse call to arrange an earlier follow-up visit next week to further discuss the blood pressure. Recommended adding a LDH, uric acid, and protein/creatinine urine. Vital Signs Vital signs: Vital Signs - 8 hr 11/10/21 11:39 11/10/21 13:33 11/10/21 13:34 Temperature 97.7 F Pulse Rate 97 H 83 80 Respiratory Rate 16 20 18 Blood Pressure 150/80 H 152/84 H Pulse Oximetry 100 100 99 11/10/21 14:00 11/10/21 14:30 11/10/21 15:00 Temperature Pulse Rate 79 80 74 Respiratory Rate 24 18 18 Blood Pressure 158/107 H 153/87 H 140/80 Pulse Oximetry 100 100 99 11/10/21 15:35 Temperature Pulse Rate 85 Respiratory Rate Blood Pressure 138/71 Pulse Oximetry 99 <Alpesh Celaya DO - Last Filed: 11/11/21 07:24> Orders Ordered: ED Orders 11/10/21 11:43 XR chest 1V Stat EKG-12 Lead Stat 11/10/21 11:47 COVID19 -Nasal swab/Pre-Proc Stat 11/10/21 11:55 Complete Blood Count AUTO DIFF Stat Comprehensive Metabolic Panel Stat LDH [Lactate Dehydrogenase] Stat Lipase Stat Magnesium Stat Troponin & CK Cardiac Panel Stat Uric Acid Stat 11/10/21 15:26 Urinalysis and Microscopic Stat Vital Signs Vital signs: Vital Signs - 8 hr 11/10/21 11:39 11/10/21 13:33 11/10/21 13:34 Temperature 97.7 F Pulse Rate 97 H 83 80 Respiratory Rate 16 20 18 Blood Pressure 150/80 H 152/84 H Pulse Oximetry 100 100 99 11/10/21 14:00 11/10/21 14:30 11/10/21 15:00 Temperature Pulse Rate 79 80 74 Respiratory Rate 24 18 18 Blood Pressure 158/107 H 153/87 H 140/80 Pulse Oximetry 100 100 99 11/10/21 15:35 Temperature Pulse Rate 85 Respiratory Rate Blood Pressure 138/71 Pulse Oximetry 99 MDM - URI/Sore Throat <Valdemar Hilliard PA-C - Last Filed: 11/10/21 18:15> Lab Data Result diagrams: 11/10/21 11:55 11/10/21 11:55 Labs: Lab Results 11/10/21 11/10/21 11/10/21 Range/Units 11:47 11:55 11:55 WBC 11.3 H (4.5-11.0) X10^3/uL RBC 3.93 L (4.0-5.2) X10^6/uL Hgb 11.8 L (12.0-16.0) g/dL Hct 34.8 L (36-46) % MCV 88.5 (80-100) fL MCH 30.0 (26-34) PG MCHC 33.9 (30-36) % RDW 14.2 (11.6-14.8) % Plt Count 298 (150-400) X10^3/uL Neut % (Auto) 71.2 (50-75) % Lymph % (Auto) 17.7 L (25-40) % [place] % (Auto) 8.9 (3-14) % Eos % (Auto) 1.7 L (2-4) % Baso % (Auto) 0.5 (0-2) % Neut # (Auto) 8000 H (5286-6391) /uL Lymph # (Auto) 2000 (7090-2099) /uL [place] # (Auto) 1000 H (0-900) /uL Eos # (Auto) 200 (0-450) /uL Baso # (Auto) 100 (0-100) /uL Sodium 136 L (137-145) mmol/L Potassium 3.6 (3.4-5.1) mmol/L Chloride 106 (98-107) mmol/L Carbon Dioxide 24 (22-32) mmol/L BUN 10 (7-17) mg/dL Creatinine 0.40 L (0.52-1.04) mg/dL Estimated GFR > 60.0 (>60) mL/min BUN/Creatinine Ratio 25.0 H (6-22) Glucose 91 (70-100) mg/dL Uric Acid (2.5-6.2) mg/dL Calcium 8.6 (8.4-10.2) mg/dL Magnesium 1.7 (1.6-2.3) mg/dL Total Bilirubin 0.3 (0.2-1.3) mg/dL AST 26 (14-36) IU/L ALT 21 (<35) IU/L Alkaline Phosphatase 48 (38-126) U/L Lactate Dehydrogenase (313-618) U/L Total Creatine Kinase 66 (30-135) U/L CK-MB (CK-2) TNP CK-MB (CK-2) Rel Index TNP Troponin I < 0.012 (0.01-0.034) ng/mL Total Protein 6.7 (6.3-8.2) g/dL Albumin 3.8 (3.5-5.0) g/dL Globulin 2.9 (1.7-4.1) g/dL Albumin/Globulin Ratio 1.3 (1.0-2.8) Lipase 47 (23-300) U/L Urine Color Urine Appearance Urine pH (4.5-8.0) Ur Specific [place] (1.000-1.035) Urine Protein (Negative) Urine Glucose (UA) (Negative) g/dL Urine Ketones (NEGATIVE) Urine Occult Blood (Negative) Urine Nitrate (Negative) Urine Bilirubin (NEGATIVE) Urine Urobilinogen (0.2) E.U./dL Ur Leukocyte Esterase (NEGATIVE) Urine RBC (0-5/HPF) Urine WBC (0-5/HPF) Ur Squamous Epith Cells (0-5/HPF) Urine Bacteria (None) Ur Culture Indicated? SARS-CoV-2 (PCR) Negative (Negative) 03/18/22 03/18/22 03/18/22 Range/Units 11:55 11:55 15:26 WBC (4.5-11.0) X10^3/uL RBC (4.0-5.2) X10^6/uL Hgb (12.0-16.0) g/dL Hct (36-46) % MCV (80-100) fL MCH (26-34) PG MCHC (30-36) % RDW (11.6-14.8) % Plt Count (150-400) X10^3/uL Neut % (Auto) (50-75) % Lymph % (Auto) (25-40) % [place] % (Auto) (3-14) % Eos % (Auto) (2-4) % Baso % (Auto) (0-2) % Neut # (Auto) (3638-5067) /uL Lymph # (Auto) (7885-0605) /uL [place] # (Auto) (0-900) /uL Eos # (Auto) (0-450) /uL Baso # (Auto) (0-100) /uL Sodium (137-145) mmol/L Potassium (3.4-5.1) mmol/L Chloride (98-107) mmol/L Carbon Dioxide (22-32) mmol/L BUN (7-17) mg/dL Creatinine (0.52-1.04) mg/dL Estimated GFR (>60) mL/min BUN/Creatinine Ratio (6-22) Glucose (70-100) mg/dL Uric Acid 2.4 L (2.5-6.2) mg/dL Calcium (8.4-10.2) mg/dL Magnesium (1.6-2.3) mg/dL Total Bilirubin (0.2-1.3) mg/dL AST (14-36) IU/L ALT (<35) IU/L Alkaline Phosphatase (38-126) U/L Lactate Dehydrogenase 613 (313-618) U/L Total Creatine Kinase (30-135) U/L CK-MB (CK-2) CK-MB (CK-2) Rel Index Troponin I (0.01-0.034) ng/mL Total Protein (6.3-8.2) g/dL Albumin (3.5-5.0) g/dL Globulin (1.7-4.1) g/dL Albumin/Globulin Ratio (1.0-2.8) Lipase (23-300) U/L Urine Color Yellow Urine Appearance Clear Urine pH 6.5 (4.5-8.0) Ur Specific [place] 1.015 (1.000-1.035) Urine Protein Negative (Negative) Urine Glucose (UA) Trace H (Negative) g/dL Urine Ketones Negative (NEGATIVE) Urine Occult Blood Negative (Negative) Urine Nitrate Negative (Negative) Urine Bilirubin Negative (NEGATIVE) Urine Urobilinogen 0.2 (0.2) E.U./dL Ur Leukocyte Esterase Negative (NEGATIVE) Urine RBC 0-1/hpf D (0-5/HPF) Urine WBC 1-5/hpf (0-5/HPF) Ur Squamous Epith Cells 5-10 /hpf H (0-5/HPF) Urine Bacteria None seen (None) Ur Culture Indicated? Cult not indicated SARS-CoV-2 (PCR) (Negative) Imaging Data Chest x-ray: Radiologist's Impression: [place] [address] XRay Report Signed Patient: Libra Velazco MR#: [id number] : 1975 Acct:[id number] Age/Sex: 45 / F Date of Service: 11/10/21 Loc: ED Accession Number: [id number] ?? Procedure: XR chest 1V Ordering Provider: Alpesh Celaya D.O. PROCEDURE:? XR CHEST 1V ? INDICATIONS:? chest pain ? TECHNIQUE:? One view of the chest was acquired.? ? COMPARISON:? None. ? FINDINGS:? ? Surgical changes and devices:? Cholecystectomy clips. ? Lungs and pleura:? Lungs are clear.? No pleural effusions or pneumothorax.? ? Mediastinum:? Mediastinal contours appear normal.? Heart size is normal.? ? Bones and chest wall:? No suspicious bony lesions.? Overlying soft tissues appea r unremarkable.? ? IMPRESSION:? No acute pulmonary process. ? ? Dictated by: Nithya Gonzalez M.D. on 11/10/2021 at 13:14 ? ? Approved by: Nithya Gonzalez M.D. on 11/10/2021 at 13:15 ? ECG Data Interpretation: 1158: Normal sinus rhythm, rate 88. No ST elevation T-wave abnormalities. Regular rhythm MDM Narrative Medical decision making narrative: This is a 14 week , 45-year-old female presenting to the emergency department due to the continued sore throat. Reviewed throat culture from visit 3 days ago which showed growth of mixed padilla. On physical exam uvula is midline in very minimal erythema was noted posterior oropharynx. Suspect viral in nature. Patient's blood pressure was noted to be 153/87. This was discussed with Dr. Gurrola, who spoke w/the patient's OB Dr. Quach who advised adding a LDH, uric acid, and protein creatinine urine to the existing lab work. They will also have the OB triage nurse call the patient to arrange for a follow-up visit within the week. Lab work in today's visit showed no significant abnormalities. EKG showed no evidence of ACS. Chest x-ray unremarkable. Recommended symptomatic treatment for the suspected viral pharyngitis as well as OB follow-up as noted above. <Alpesh Celaya, DO - Last Filed: 11/11/21 07:24> Lab Data Labs: Lab Results 11/10/21 11/10/21 11/10/21 Range/Units 11:47 11:55 11:55 WBC 11.3 H (4.5-11.0) X10^3/uL RBC 3.93 L (4.0-5.2) X10^6/uL Hgb 11.8 L (12.0-16.0) g/dL Hct 34.8 L (36-46) % MCV 88.5 (80-100) fL MCH 30.0 (26-34) PG MCHC 33.9 (30-36) % RDW 14.2 (11.6-14.8) % Plt Count 298 (150-400) X10^3/uL Neut % (Auto) 71.2 (50-75) % Lymph % (Auto) 17.7 L (25-40) % [place] % (Auto) 8.9 (3-14) % Eos % (Auto) 1.7 L (2-4) % Baso % (Auto) 0.5 (0-2) % Neut # (Auto) 8000 H (8147-6282) /uL Lymph # (Auto) 2000 (2236-0038) /uL [place] # (Auto) 1000 H (0-900) /uL Eos # (Auto) 200 (0-450) /uL Baso # (Auto) 100 (0-100) /uL Sodium 136 L (137-145) mmol/L Potassium 3.6 (3.4-5.1) mmol/L Chloride 106 (98-107) mmol/L Carbon Dioxide 24 (22-32) mmol/L BUN 10 (7-17) mg/dL Creatinine 0.40 L (0.52-1.04) mg/dL Estimated GFR > 60.0 (>60) mL/min BUN/Creatinine Ratio 25.0 H (6-22) Glucose 91 (70-100) mg/dL Uric Acid (2.5-6.2) mg/dL Calcium 8.6 (8.4-10.2) mg/dL Magnesium 1.7 (1.6-2.3) mg/dL Total Bilirubin 0.3 (0.2-1.3) mg/dL AST 26 (14-36) IU/L ALT 21 (<35) IU/L Alkaline Phosphatase 48 (38-126) U/L Lactate Dehydrogenase (313-618) U/L Total Creatine Kinase 66 (30-135) U/L CK-MB (CK-2) TNP CK-MB (CK-2) Rel Index TNP Troponin I < 0.012 (0.01-0.034) ng/mL Total Protein 6.7 (6.3-8.2) g/dL Albumin 3.8 (3.5-5.0) g/dL Globulin 2.9 (1.7-4.1) g/dL Albumin/Globulin Ratio 1.3 (1.0-2.8) Lipase 47 (23-300) U/L Urine Color Urine Appearance Urine pH (4.5-8.0) Ur Specific [place] (1.000-1.035) Urine Protein (Negative) Urine Glucose (UA) (Negative) g/dL Urine Ketones (NEGATIVE) Urine Occult Blood (Negative) Urine Nitrate (Negative) Urine Bilirubin (NEGATIVE) Urine Urobilinogen (0.2) E.U./dL Ur Leukocyte Esterase (NEGATIVE) Urine RBC (0-5/HPF) Urine WBC (0-5/HPF) Ur Squamous Epith Cells (0-5/HPF) Urine Bacteria (None) Ur Culture Indicated? SARS-CoV-2 (PCR) Negative (Negative) 11/10/21 11/10/21 11/10/21 Range/Units 11:55 11:55 15:26 WBC (4.5-11.0) X10^3/uL RBC (4.0-5.2) X10^6/uL Hgb (12.0-16.0) g/dL Hct (36-46) % MCV (80-100) fL MCH (26-34) PG MCHC (30-36) % RDW (11.6-14.8) % Plt Count (150-400) X10^3/uL Neut % (Auto) (50-75) % Lymph % (Auto) (25-40) % [place] % (Auto) (3-14) % Eos % (Auto) (2-4) % Baso % (Auto) (0-2) % Neut # (Auto) (2217-3963) /uL Lymph # (Auto) (2532-1016) /uL [place] # (Auto) (0-900) /uL Eos # (Auto) (0-450) /uL Baso # (Auto) (0-100) /uL Sodium (137-145) mmol/L Potassium (3.4-5.1) mmol/L Chloride (98-107) mmol/L Carbon Dioxide (22-32) mmol/L BUN (7-17) mg/dL Creatinine (0.52-1.04) mg/dL Estimated GFR (>60) mL/min BUN/Creatinine Ratio (6-22) Glucose (70-100) mg/dL Uric Acid 2.4 L (2.5-6.2) mg/dL Calcium (8.4-10.2) mg/dL Magnesium (1.6-2.3) mg/dL Total Bilirubin (0.2-1.3) mg/dL AST (14-36) IU/L ALT (<35) IU/L Alkaline Phosphatase (38-126) U/L Lactate Dehydrogenase 613 (313-618) U/L Total Creatine Kinase (30-135) U/L CK-MB (CK-2) CK-MB (CK-2) Rel Index Troponin I (0.01-0.034) ng/mL Total Protein (6.3-8.2) g/dL Albumin (3.5-5.0) g/dL Globulin (1.7-4.1) g/dL Albumin/Globulin Ratio (1.0-2.8) Lipase (23-300) U/L Urine Color Yellow Urine Appearance Clear Urine pH 6.5 (4.5-8.0) Ur Specific [place] 1.015 (1.000-1.035) Urine Protein Negative (Negative) Urine Glucose (UA) Trace H (Negative) g/dL Urine Ketones Negative (NEGATIVE) Urine Occult Blood Negative (Negative) Urine Nitrate Negative (Negative) Urine Bilirubin Negative (NEGATIVE) Urine Urobilinogen 0.2 (0.2) E.U./dL Ur Leukocyte Esterase Negative (NEGATIVE) Urine RBC 0-1/hpf D (0-5/HPF) Urine WBC 1-5/hpf (0-5/HPF) Ur Squamous Epith Cells 5-10 /hpf H (0-5/HPF) Urine Bacteria None seen (None) Ur Culture Indicated? Cult not indicated SARS-CoV-2 (PCR) (Negative) Discharge Plan Departure Patient Disposition: Home Clinical Impression: Acute viral pharyngitis, High blood pressure affecting in second trimester, antepartum Instructions: Viral Pharyngitis Activity Restrictions/Additional Instructions: Thank you for coming to the [facility] emergency department. As we discussed I suspect the sore throat your experiencing is viral in nature, please read the test instructions for wheezing and treat the symptoms. The chest x-ray showed no abnormality in her lungs or heart. EKG showed no evidence of a heart attack. Your lab work showed no acute concerning findings. Your blood pressure was noted to be slightly elevated and I spoke with Dr. Gurrola who works with Dr. Shearer and they stated that they will have a triage nurse call you to arrange for an earlier follow-up visit to monitor the blood pressure. The sore throat should improve over time. Prescriptions: No Action escitalopram oxalate 20 mg tablet See Rx Instructions .ROUTE .COMPLEX Qty: 90 2RF Dose Instruction: TAKE 1 TABLET BY MOUTH DAILY Rx Instructions: TAKE 1 TABLET BY MOUTH DAILY buspirone 5 mg tablet See Rx Instructions .ROUTE .COMPLEX Qty: 180 0RF Dose Instruction: TAKE 2 TABLETS BY MOUTH THREE TIMES DAILY Rx Instructions: TAKE 2 TABLETS BY MOUTH THREE TIMES DAILY duloxetine [Cymbalta] 60 mg capsule,delayed release(DR/EC) 60 mg PO DAILY Qty: 90 0RF ibuprofen 200 mg tablet 600 mg PO TID 0RF Hold Instructions: prenat.vits,karla,qnq-kfhi-voclw Tablet 1 tab PO DAILY 0RF Referrals: Sharon De La Torre DO [Primary Care Provider] - <Alpesh Celaya DO - Last Filed: 11/11/21 07:24> Cosign ED Attending Coschadature Attestation: I was immediately available in the department for consultation. This documentation has been reviewed and I agree with assessment and plan. Supervised by Alpesh Celaya DO
[2021-11-10 15:12] LABS: Lactate Dehydrogenase 613 U/L (313-618)
[2021-11-10 15:16] LABS: Uric Acid 2.4 mg/dL (2.5-6.2)
[2021-11-10 15:35] LABS: Appearance Urine UA CLEAR; Bilirubin Urine UA NEGATIVE (NEGATIVE); Color Urine UA YELLOW; Glucose Urine UA TRACE g/dL (Negative); Ketones Urine UA NEGATIVE (NEGATIVE); Leukocyte Esterase Urine UA NEGATIVE (NEGATIVE); Nitrite Urine UA NEGATIVE (Negative); Occult Blood Urine UA NEGATIVE (Negative); Protein Urine UA NEGATIVE (Negative); Specific Gravity Urine UA 1.015 (1.000-1.035); Urobilinogen Urine UA 0.2 E.U./dL (0.2)
[2021-11-10 15:42] LABS: pH Urine UA 6.5 (4.5-8.0)
[2021-11-10 15:47] LABS: Bacteria Urine None Seen; Culture Indicated Urine Cult Not Indicated; RBC Urine 0-1/HPF (0-5/HPF); Squamous Epithelial Cell Urine 5-10 /HPF (0-5/HPF); WBC Urine 1-5/HPF (0-5/HPF)
== END 2021-11-10 15:35 | disposition home or self-care (01) ==
PROVIDERS: Emergency Medicine; Emergency Provider Physician Assistant Medical; PCP Family Medicine
DX: O26.892 Other specified pregnancy related conditions, second trimester (principal); J02.8 Acute pharyngitis due to other specified organisms; B97.89 Other viral agents as the cause of diseases classified elsewhere; O16.2 Unspecified maternal hypertension, second trimester; O99.332 Smoking (tobacco) complicating pregnancy, second trimester; F17.290 Nicotine dependence, other tobacco product, uncomplicated; Z3A.14 14 weeks gestation of pregnancy; Z20.822 Contact with and (suspected) exposure to COVID-19
CPT/HCPCS: 36415; 71045; 80053; 81001; 82550; 83615; 83690; 83735; 84484; 84550; 85025; 87635; 93005; 93010; 99283; 99284; C9803

== ENCOUNTER → 2021-11-17 13:27 | Outpatient (CLI) | payer OTHER, SELFPAY ==
[2021-11-17 14:03] LABS: Add Manual Diff / Slide Review NO; Basophils Absolute Auto 100 /uL (0-100); Eosinophils Absolute Auto 100 /uL (0-450); Eosinophils Percent Auto 1.3 % (2-4); Hematocrit 34.8 % (36-46); Hemoglobin 12.1 g/dL (12.0-16.0); Lymphocytes Absolute Auto 2100 /uL (1100-4500); Lymphocytes Percent Auto 28.6 % (25-40); Mean Corpuscular HGB Conc 34.6 % (30-36); Mean Corpuscular Hemoglobin 30.6 PG (26-34); Mean Corpuscular Volume 88.3 fL (80-100); Monocytes Absolute Auto 700 /uL (0-900); Monocytes Percent Auto 9.3 % (3-14); Neutrophils Absolute Auto 4400 /uL (1500-7000); Neutrophils Percent Auto 59.8 % (50-75); Platelet Count 313 X10^3/uL (150-400); Red Blood Cell Count 3.94 X10^6/uL (4.0-5.2); Red Cell Distribution Width 14.2 % (11.6-14.8); White Blood Cell Count 7.3 X10^3/uL (4.5-11.0)
[2021-11-18 04:08] LABS: RPR Screen Non Reactive (Non Reactive)
[2021-11-18 08:45] LABS: Varicella IgG Antibody 951 index (Immune >165)
[2021-11-20 17:51] LABS: Hepatitis B Surface Antigen NEGATIVE s/c (NEGATIVE); Rubella Antibody IgG 8.9 IU/mL (>15)
[2021-11-20 18:08] LABS: HIV 1 & 2 Ab/Ag 4th Gen Combo NEGATIVE (NEGATIVE); Hep C Virus Ab w/Reflex Quant NEGATIVE s/c (NEGATIVE)
== END ==
PROVIDERS: PCP Family Medicine; Referring Provider Obstetrics & Gynecology; Visit Provider Obstetrics & Gynecology
DX: Z34.80 Encounter for supervision of other normal pregnancy, unspecified trimester (principal)
CPT/HCPCS: 36415; 80055; 86787; 86803; 86850; 86900; 86901; 87389

== ENCOUNTER → 2022-01-10 15:19 | Outpatient (CLI) | payer OTHER, MEDICAID, SELFPAY ==
--- NOTE | 2022-01-10 15:23 | DI.US.S_ITS ---
PROCEDURE: US OB >= 14 WEEKS FETUS INDICATIONS: ANATOMY SCAN OUTSIDE/PRIOR DATING DATA: Last menstrual period (LMP): 08/19/21. LMP-based estimated date of delivery (GALEN): 05/26/22. First dating scan (date and location): 10/25/21. Estimated date of delivery (GALEN) from first dating scan: 05/29/22. The calculations are made using the sonographic GALEN of 05/29/22. TECHNIQUE: Real-time scanning was performed of the fetus, with image documentation and biometric measurements. Endovaginal scanning: Not performed COMPARISON: None. FINDINGS: General: A single living intrauterine gestation is present. Presentation: Breech. Placenta: Placental position is posterior , without previa. Lower edge is 2.5 cm from internal cervical os. Amniotic fluid index: 15.6 cm, normal range is 5-24 cm. Single deepest vertical pocket is 4.7 cm. heart rate: 144 beats per minute. Maternal cervical canal: Closed and 4.8 cm long. Normal lower limit is 2.5 cm. biometrics: Biparietal diameter: 4.6 cm, 19 weeks, six days Head circumference: 17.9 cm, 20 weeks, two days Abdominal circumference: 15.2 cm, 20 weeks, three days Femur length: 3.2 cm, 20 weeks, one day Clinically estimated gestational age: 20 weeks, one day Composite gestational age from present scan: 20 weeks, one day Estimated weight and percentile: 342 g, 52 nd percentile Anatomic survey: Neuro: Ventricles are non-dilated at less than 10 mm. Cisterna magna is normal at 3-11 mm. Cerebellum is normal in size and morphology. Nuchal skin fold: Normal at less than 6 mm between 14-21 weeks gestational age. Face: Nose and lips, facial profile are normal. Spine: No evidence for spina bifida. Heart: Incompletely evaluated secondary to position. Diaphragm: Diaphragm is intact. Stomach: Left-sided stomach is present. Kidneys: No hydronephrosis. Normal is less than 5 mm in 2nd trimester, less than 7 mm in 3rd trimester. Cord: 3-vessel cord has orthotopic insertion. Bladder: Normal in size. Extremities: All 4 extremities identified. IMPRESSION: 1. Single living intrauterine with appropriate growth since the prior study. 2. Incomplete visualization of the heart. Otherwise normal anatomy. Follow-up in one week recommended. 3. Posterior placental edge 2.5 cm from the internal cervical os. This does not qualify as low-lying placenta. We strive to produce accurate, complete, and clear reports of imaging services. To assist us in improving patient care, this report was composed using standard report templates and voice recognition software. Therefore, it may contain abnormal punctuation, insertions and/or omissions. Occasional wrong-word or sound-alike substitutions may occur. Though we review the report and make efforts to correct it, we do recommend that the report be read carefully in proper context to recognize any text inaccuracies. Dictated by: Tana Reis M.D. on 01/10/2022 at 17:00 Approved by: Tana Reis M.D. on 01/10/2022 at 17:06
== END ==
PROVIDERS: PCP Family Medicine; Referring Provider Obstetrics & Gynecology; Visit Provider Obstetrics & Gynecology
DX: Z34.82 Encounter for supervision of other normal pregnancy, second trimester (principal); Z3A.20 20 weeks gestation of pregnancy
CPT/HCPCS: 76811

== ENCOUNTER → 2022-02-15 13:59 | Outpatient (CLI) | payer OTHER, MEDICAID, SELFPAY ==
[2022-02-15 14:56] LABS: Appearance Urine UA CLEAR; Bilirubin Urine UA NEGATIVE (NEGATIVE); Color Urine UA YELLOW; Glucose Urine UA NEGATIVE (Negative); Ketones Urine UA TRACE (NEGATIVE); Leukocyte Esterase Urine UA TRACE (NEGATIVE); Nitrite Urine UA NEGATIVE (Negative); Occult Blood Urine UA NEGATIVE (Negative); Protein Urine UA 1+ (Negative); Urobilinogen Urine UA 0.2 E.U./dL (0.2)
[2022-02-15 14:59] LABS: UR Morphine/Opiate cutoff 300 Negative (Negative); Ur Creatinine Normal (Normal); Ur Specific Gravity Normal (Normal); Urine Amphetamines Positive (Negative); Urine Barbiturates Negative (Negative); Urine Benzodiazepines Positive (Negative); Urine Cocaine Negative (Negative); Urine MDMA Positive (Negative); Urine Methadone Negative (Negative); Urine Methamphetamines Positive (Negative); Urine Oxycodone Negative (Negative); Urine Phencyclidine Negative (Negative); Urine Tetrahydrocannabinol Negative (Negative); Urine Tricyclic Antidepressant Negative (Negative); Urine pH Normal (Normal)
[2022-02-15 15:01] LABS: pH Urine UA 6.5 (4.5-8.0)
[2022-02-15 15:07] LABS: RBC Urine None Seen (0-5/HPF); Squamous Epithelial Cell Urine 0-1 /HPF (0-5/HPF); WBC Urine 0-1/HPF (0-5/HPF)
[2022-02-15 15:08] LABS: Bacteria Urine Few (2-10); Mucus Urine 1+ (Negative)
== END ==
PROVIDERS: PCP Family Medicine; Visit Provider Obstetrics & Gynecology
DX: Z34.82 Encounter for supervision of other normal pregnancy, second trimester (principal); Z02.83 Encounter for blood-alcohol and blood-drug test; Z3A.25 25 weeks gestation of pregnancy
CPT/HCPCS: 80305; 81003; 81015; 87086

== ENCOUNTER 2022-05-18 15:14 | Outpatient (CLI) | payer OTHER, MEDICAID, SELFPAY ==
--- NOTE | 2022-05-18 16:10 | P.TNLD_ITS ---
Visit Information Visit Information Date of evaluation: 05/18/22 Primary OB Provider: Annmarie Shearer On-call OB Provider: Annmarie Shearer Reason for Evaluation: Yes non-stress test non-stress test reason: hypertension/pre-eclampsia and other (AMA) [facility] Medical History Anxiety Depression (~2002) Heavy menstrual period (~1991) Joint pain Musculoskeletal pain (~2017) Ovarian cyst (~2002) Painful menstrual periods (~1991) Rheumatoid arthritis (~2018) Shoulder pain (~2014) Swelling of finger joint of right hand (~05/2019) Surgical History Anesthesia H/O breast reconstruction H/O knee surgery History of Achilles tendon repair (~2010) History of cholecystectomy (~2017) Family History Father History of heart disease Hypertension Hyperlipidemia Mother Cancer History of heart disease Hypertension Hyperlipidemia Mental health problem Lymphoma Grandfather History of blood clots Grandmother Diabetes mellitus History of heart disease Hypertension Hyperlipidemia Stroke Grandfather Cancer Grandmother Alcoholism Social History marital status: number of children: 4 household members: spouse and children lives independently: Yes housing: house pets and animals: Yes (Dogs, aware of toxo and gardening) education level: college occupational status: unemployed current occupational exposures/hazards: No (aware home chemicals) seatbelt use: always water heater temp set < 120 deg: Yes working smoke detector in home: Yes fire extinguisher in home: Yes carbon monox detector in home: Yes firearms in home: No do you feel safe at home: Yes Smoking Status: Current every day smoker second hand exposure: No alcohol intake: former substance use type: does not use during the past year weight has: remained stable well-balanced diet: daily or most days daily servings fruits/ve-4 caffeine: Yes (on occasion but not much, discusssed the 200mg limit) Type(s) of exercise: walking frequency: daily Evaluation Evaluation Baseline heart rate: 115 Variability: Moderate (11-25) monitor accelerations: Present Monitor Decelerations: Absent Status: Category l Cervical dilation (cm): 1 Cervical effacement (%): 75 station: -1 Diagnosis, Plan/Disposition Plan/Disposition Plan: Assessment: 46-year-old 5 para 4 at 38-,4/7 weeks gestation with hypertension Reactive nonstress test Plan: kick counts Patient to follow-up in 3 days for cervical ripening/induction of labor OB Disposition: home
== END 2022-05-18 16:05 | disposition home or self-care (01) ==
LOC: LABOR 16:06 → OB 05-30 12:13
PROVIDERS: PCP Pediatrics; Referring Provider Obstetrics & Gynecology; Visit Provider Obstetrics & Gynecology
DX: O16.3 Unspecified maternal hypertension, third trimester (principal); O09.523 Supervision of elderly multigravida, third trimester; Z3A.38 38 weeks gestation of pregnancy; Z34.83 Encounter for supervision of other normal pregnancy, third trimester
CPT/HCPCS: 59025; 87653; G0378; G0379

== ENCOUNTER → 2022-05-18 15:19 | Outpatient (CLI) | payer OTHER, MEDICAID, SELFPAY ==
[2022-05-19 12:23] LABS: Strep Grp B PCR POS for Grp B Strep
== END ==
PROVIDERS: PCP Pediatrics; Visit Provider Obstetrics & Gynecology
DX: Z34.83 Encounter for supervision of other normal pregnancy, third trimester (principal); Z3A.38 38 weeks gestation of pregnancy
CPT/HCPCS: 87653

== ENCOUNTER 2022-05-21 18:13 | Inpatient (IN) | payer OTHER, MEDICAID, SELFPAY ==
[2022-05-21 19:20] VITALS: BP 135/68
[2022-05-21 19:24] LABS: Add Manual Diff / Slide Review NO; Basophils Absolute Auto 100 /uL (0-100); Basophils Percent Auto 1.2 % (0-2); Eosinophils Absolute Auto 0 /uL (0-450); Eosinophils Percent Auto 0.5 % (2-4); Hematocrit 27.4 % (36-46); Hemoglobin 8.9 g/dL (12.0-16.0); Lymphocytes Absolute Auto 1800 /uL (1100-4500); Mean Corpuscular HGB Conc 32.5 % (30-36); Monocytes Absolute Auto 500 /uL (0-900); Monocytes Percent Auto 8.1 % (3-14); Neutrophils Absolute Auto 3800 /uL (1500-7000); Neutrophils Percent Auto 61.2 % (50-75); Platelet Count 227 X10^3/uL (150-400); Red Blood Cell Count 3.42 X10^6/uL (4.0-5.2); Red Cell Distribution Width 15.9 % (11.6-14.8); White Blood Cell Count 6.2 X10^3/uL (4.5-11.0)
[2022-05-21 19:39] LABS: COVID19 -Nasal RAPID Negative (Negative)
[2022-05-21] MEDS: miSOPROStoL 25 MCG TABLET VAG ×2 (20:07→20:08)
[2022-05-21 21:15] VITALS: BP 150/81; PULSE 74
[2022-05-21] MEDS: LABETALOL 100 MG TABLET 200 MG PO (21:15)
[2022-05-21 21:48] LABS: UR Morphine/Opiate cutoff 300 Negative (Negative); Ur Creatinine Normal (Normal); Ur Specific Gravity Normal (Normal); Urine Amphetamines Positive (Negative); Urine Barbiturates Negative (Negative); Urine Benzodiazepines Negative (Negative); Urine Cocaine Negative (Negative); Urine MDMA Positive (Negative); Urine Methadone Negative (Negative); Urine Methamphetamines Positive (Negative); Urine Oxycodone Negative (Negative); Urine Phencyclidine Negative (Negative); Urine Tetrahydrocannabinol Negative (Negative); Urine Tricyclic Antidepressant Positive (Negative); Urine pH Normal (Normal)
[2022-05-21 22:50] VITALS: BP 138/68; PULSE 76
[2022-05-22] MEDS: miSOPROStoL 25 MCG TABLET VAG ×2 (00:12→04:47)
[2022-05-22] MEDS: ZOLPIDEM 5 MG TABLET PO (02:59)
[2022-05-22 07:59] VITALS: BP 156/97; PULSE 66
[2022-05-22] MEDS: LABETALOL 100 MG TABLET 200 MG PO (07:59)
[2022-05-22] MEDS: OXYTOCIN PREMIX 30 UNIT/500 ML PLAST..BAG IV (08:00)
[2022-05-22] MEDS: KETOROLAC 30 MG/ML VIAL IV (08:03)
[2022-05-22 08:30] VITALS: BP 155/81; PULSE 67
--- NOTE | 2022-05-22 08:33 | P.PCNOB_ITS ---
Events: Induced HTN and Other (precipitous labor and delivery, unattended ) Labor & Delivery Delivery date: 05/22/22 Intrapartal Events: Precipitous Labor < 3 hours Cervical ripening method: per misoprostal protocol Induction method: none Delivery monitor: external FHT and external uterine Route of delivery: (precipitous, unattended) Episiotomy description: None L&D Laceration Description: Perineal - 1st Degree and Vaginal - 1st Degree Delivery repair: chromic Estimated blood loss (mL): 300 Anesthesia Type: Local (for repair only) Complications: Precipitous delivery, unattended in the shower Narrative: Patient removed herself from the monitors and went into the shower. She felt some rectal pressure and had an unattended vaginal while standing in the shower. This was approximately 0740 a.m.. I arrived 1 minute later and the baby was still attached. Apparently she had dropped to the baby in the shower. The cord was double clamped and cut. Cord bloods were obtained. The patient was moved from the shower via wheelchair into the bed. Pitocin was given in the IV fluids. The placenta delivered intact with a three-vessel cord at 8:06 a.m.. The fundus was massaged to firm. 30 mg of IV Toradol were given. A first- degree vaginal/perineal laceration was repaired in the usual fashion with 2-0 chromic after 10 cc of 1% lidocaine were injected. Apgars 8 at 1 minute and 8 at 5 minutes. weight 7 lb 7 oz. mom and are both stable to recovery. [place] Baby 1: Infant gender: Male Presentation: vertex Placenta delivery description: Spontaneous Cord Vessel Description: 3 Vessels and Clamped/Cut score (1 min): 8 score (5 min): 8 weight: 7 lb 7 oz Plan for aftercare: Routine care
--- NOTE | 2022-05-22 08:33 | PM.OBHP.IH.1 ---
OB HPI Date/Time Date of admission: 05/21/22 Date Patient Seen: 05/22/22 Time Patient Seen: 08:33 History of Present Condition Chief complaint: Induction & Delivery GALEN Calculator Estimated Delivery Date Method Current WG Current Estimate 05/26/22 LMP (Uncertain) 39w 3d : 5 Para: 4 care: limited care, initiated at week #, number of visits (7) and pounds weight gain (32) Dating criteria OB: LMP confirmed by 1st trimester US Ultrasounds: normal 1st trimester US and normal mid trimester US Obstetrical complications: other (Positive tox screen at 25 weeks, AMA) Medical complications OB: cardiovascular (Hypertension) and immunologic (+[id number]) Indications Indication for induction OB: gestational HTN/pre-eclampsia and other (AMA) Preadmission Labs Last OB Lab Results: Blood Type A Positive 05/21/22 18:58 Antibody Screen Negative 05/21/22 18:58 Hematocrit 27.4 % (36-46) L 05/21/22 18:58 Hemoglobin 8.9 g/dL (12.0-16.0) L 05/21/22 18:58 Hepatitis B Surface Antigen Negative s/c (NEGATIVE) 11/17/21 13:36 Hepatitis C Antibody Negative s/c (NEGATIVE) 11/17/21 13:36 Rubella Antibody 8.9 IU/mL (>15) L 11/17/21 13:36 Varicella-Zoster IgG Antibody 951 index (Immune >165) 11/17/21 13:36 Group B Streptococcus (PCR) Pos for grp b strep H 05/18/22 15:19 -: Chlamydia screen: negative, Gonorrhea screen: negative and Urine: negative -: PAP smear: Abnormal (ASCUS) Genetic Screens: Cell-free DNA: Normal and Alpha-fetoprotein: Abnormal (not done, pt too late, missed ob appt's) External Labs -: Urine: negative Prior (ies) Past Pregnancies Del. Date GA/Weeks Labor Lgth Wt Sex Route Outcome Anesthesia Place Delv Breastfeed Preg Comp Name 08/26/97 41 12 7 lb 2 oz Female vaginal live - full term none [facility] 9 mon none [place] 11/24/02 40 8 4 oz Female vaginal live - full term none [facility] 2 yrs none [place] 09/30/05 40 17 10 lb Male vaginal live - full term epidural [place] 2 yrs none [place] 05/03/08 40 6 7 lb 4 oz Male vaginal live - full term none [place] 3yrs none Inder Evaluation Evaluation Baseline heart rate: 140 Variability: Moderate (11-25) monitor accelerations: Present Monitor Decelerations: Absent Contraction Frequency (minutes): 5 Uterine Contraction Intensity: Mild Status: Category l PFSH Medical History Anxiety Depression (~2002) Heavy menstrual period (~1991) Joint pain Musculoskeletal pain (~2017) Ovarian cyst (~2002) Painful menstrual periods (~1991) Rheumatoid arthritis (~2018) Shoulder pain (~2014) Swelling of finger joint of right hand (~05/2019) Surgical History Anesthesia H/O breast reconstruction H/O knee surgery History of Achilles tendon repair (~2010) History of cholecystectomy (~2017) Family History Father History of heart disease Hypertension Hyperlipidemia Mother Cancer History of heart disease Hypertension Hyperlipidemia Mental health problem Lymphoma Grandfather History of blood clots Grandmother Diabetes mellitus History of heart disease Hypertension Hyperlipidemia Stroke Grandfather Cancer Grandmother Alcoholism Social History marital status: number of children: 4 household members: spouse and children lives independently: Yes housing: house pets and animals: Yes (Dogs, aware of toxo and gardening) education level: college occupational status: unemployed current occupational exposures/hazards: No (aware home chemicals) seatbelt use: always water heater temp set < 120 deg: Yes working smoke detector in home: Yes fire extinguisher in home: Yes carbon monox detector in home: Yes firearms in home: No do you feel safe at home: Yes Smoking Status: Current some day smoker second hand exposure: No alcohol intake: former substance use type: does not use during the past year weight has: remained stable well-balanced diet: daily or most days daily servings fruits/ve-4 caffeine: Yes (on occasion but not much, discusssed the 200mg limit) Type(s) of exercise: walking frequency: daily Meds Home Medications and Allergies Home Medications Medication Instructions Recorded Confirmed Type prenat.vits,karla,[id number]-[id number] 1 tab PO DAILY 10/19/21 05/21/22 History duloxetine 60 mg capsule,delayed 60 mg PO DAILY #90 caps 11/02/21 05/21/22 Rx release (Cymbalta) labetalol 200 mg tablet 200 mg PO BID 05/21/22 05/21/22 History Allergies Allergy/AdvReac Type Severity Reaction Status Date / Time No Known Drug Allergies Allergy Verified 05/18/22 14:41 OB Exam Narrative Exam Narrative: Generally: Patient standing and shower, having delivered baby by herself Objective Labs Result Diagrams: 05/21/22 18:58 Labs: Laboratory Results - last 24 hr 05/21/22 05/21/22 05/21/22 18:58 18:58 18:58 WBC 6.2 RBC 3.42 L Hgb 8.9 L Hct 27.4 L MCV 80.0 MCH 26.0 MCHC 32.5 RDW 15.9 H Plt Count 227 Neut % (Auto) 61.2 Lymph % (Auto) 29.0 [place] % (Auto) 8.1 Eos % (Auto) 0.5 L Baso % (Auto) 1.2 Neut # (Auto) 3800 Lymph # (Auto) 1800 [place] # (Auto) 500 Eos # (Auto) 0 Baso # (Auto) 100 U Opiates 300ng/mL cut Ur Oxycodone Screen Urine Methadone Screen Ur Barbiturates Screen U Tricyclic Antidepress Ur Phencyclidine Scrn Ur Amphetamines Screen U Methamphetamines Scrn Ur MDMA Scrn (Ecstasy) U Benzodiazepines Scrn Urine Cocaine Screen U Marijuana (THC) Screen SARS-CoV-2 (PCR) Negative Blood Type A Positive Antibody Screen Negative 05/21/22 21:25 WBC RBC Hgb Hct MCV MCH MCHC RDW Plt Count Neut % (Auto) Lymph % (Auto) [place] % (Auto) Eos % (Auto) Baso % (Auto) Neut # (Auto) Lymph # (Auto) [place] # (Auto) Eos # (Auto) Baso # (Auto) U Opiates 300ng/mL cut Negative Ur Oxycodone Screen Negative Urine Methadone Screen Negative Ur Barbiturates Screen Negative U Tricyclic Antidepress Positive H Ur Phencyclidine Scrn Negative Ur Amphetamines Screen Positive H U Methamphetamines Scrn Positive H Ur MDMA Scrn (Ecstasy) Positive H U Benzodiazepines Scrn Negative Urine Cocaine Screen Negative U Marijuana (THC) Screen Negative SARS-CoV-2 (PCR) Blood Type Antibody Screen Assessment and Plan Assessment and Plan Assessment and Plan narrative: Assessment: 46-year-old 5 para 4 at 39-,3/7 weeks gestation status post cervical ripening with misoprostol Advanced maternal age Positive urine toxicology this Precipitous delivery in the shower, unattended Plan: Patient moved back to bed Delivery of placenta and repair Time Spent with Patient Total time spent with greater than 50% in coordination of care (as documented) at patient's floor/unit and/or counseling patient:: 25 - 35 minutes
[2022-05-22 09:51] VITALS: TEMP 36.5
[2022-05-22] MEDS: IBUPROFEN 600 MG TABLET PO (09:51)
[2022-05-22 09:52] VITALS: TEMP 36.5
[2022-05-22] MEDS: ACETAMINOPHEN 325 MG TABLET 650 MG PO (09:52)
[2022-05-22] MEDS: DERMOPLAST SPRAY 20% 60 ML 1 SPRAY TOP (09:53)
[2022-05-22] MEDS: PRENATAL VIT,CALC/IRON/FOLIC 1 TABLET 1 TAB PO (09:53)
[2022-05-22] MEDS: DOCUSATE 100 MG CAPSULE PO (09:53)
[2022-05-22] MEDS: DULOXETINE 30 MG CAPSULE 60 MG PO (10:05)
--- NOTE | 2022-05-22 13:12 | PM.OBDS.1 ---
Discharge Providers Provider Date of admission: 05/21/22 18:13 Discharge Date: 05/22/22 Primary care physician: Pedro Hernandez MD Consults: 05/23/22 08:23 Consult to Director Of Emergency Nursing Routine Comment: Discharge provider: Annmarie Shearer MD Summary Hospital Course Date Patient Seen: 05/22/22 Time Patient Seen: 13:10 Diagnoses: 39-3/7 weeks gestation Cervical ripening with misoprostol Precipitous labor and delivery First-degree vaginal/perineal laceration and repair Hospital Course: Patient is a 46-year-old 5 para 5 who presented on May 21, 2022 for cervical ripening prior to induction of labor. She had a urine that was sent for toxicology at admission which was positive for methamphetamine, tricyclic antidepressants, and MDMA. She received 3 doses of oral misoprostol. On the morning of May 22, 2022, she went from 1 cm and long at 5:00 a.m. to delivering in the shower by herself at 7:40 a.m.. She had a first-degree vaginal/perineal laceration which was repaired. The baby was transferred to [facility]. Patient requested early discharge to go down to [place]. She was discharged home on day # 0. Peripartum Data Infant Delivery Method: Natural Vaginal Laceration Description: Perineal - 1st Degree and Vaginal - 1st Degree Episiotomy description: None Procedures: Misoprostol cervical ripening First-degree vaginal/perineal laceration repair complications: none [place] 1: Gender: Male Disposition of : NICU ([facility]) Status at Discharge Cognitive/behavioral status at discharge: oriented Functional status at discharge: independent ambulation Overall status at discharge: patient is progressing back to baseline Time Spent with Patient Time attestation: Total time spent providing and/or coordinating discharge services: Time spent: Less than 30 minutes Objective Labs Result Diagrams: 05/21/22 18:58 Labs: Laboratory Results - last 24 hr 05/21/22 05/21/22 05/21/22 18:58 18:58 18:58 WBC 6.2 RBC 3.42 L Hgb 8.9 L Hct 27.4 L MCV 80.0 MCH 26.0 MCHC 32.5 RDW 15.9 H Plt Count 227 Neut % (Auto) 61.2 Lymph % (Auto) 29.0 [place] % (Auto) 8.1 Eos % (Auto) 0.5 L Baso % (Auto) 1.2 Neut # (Auto) 3800 Lymph # (Auto) 1800 [place] # (Auto) 500 Eos # (Auto) 0 Baso # (Auto) 100 U Opiates 300ng/mL cut Ur Oxycodone Screen Urine Methadone Screen Ur Barbiturates Screen U Tricyclic Antidepress Ur Phencyclidine Scrn Ur Amphetamines Screen U Methamphetamines Scrn Ur MDMA Scrn (Ecstasy) U Benzodiazepines Scrn Urine Cocaine Screen U Marijuana (THC) Screen SARS-CoV-2 (PCR) Negative Blood Type A Positive Antibody Screen Negative 05/21/22 21:25 WBC RBC Hgb Hct MCV MCH MCHC RDW Plt Count Neut % (Auto) Lymph % (Auto) [place] % (Auto) Eos % (Auto) Baso % (Auto) Neut # (Auto) Lymph # (Auto) [place] # (Auto) Eos # (Auto) Baso # (Auto) U Opiates 300ng/mL cut Negative Ur Oxycodone Screen Negative Urine Methadone Screen Negative Ur Barbiturates Screen Negative U Tricyclic Antidepress Positive H Ur Phencyclidine Scrn Negative Ur Amphetamines Screen Positive H U Methamphetamines Scrn Positive H Ur MDMA Scrn (Ecstasy) Positive H U Benzodiazepines Scrn Negative Urine Cocaine Screen Negative U Marijuana (THC) Screen Negative SARS-CoV-2 (PCR) Blood Type Antibody Screen Exam Vital Signs (past 8 hours): - 05/22/22 07:59 05/22/22 08:30 05/22/22 09:51 Temperature 97.7 F Pulse Rate 66 67 Blood Pressure 156/97 H 155/81 H 05/22/22 09:52 Temperature 97.7 F Pulse Rate Blood Pressure Narrative Exam Narrative: Generally: Found patient in nursery, she is asking to be discharged. Took patient back to her room. Patient walking around in room. Apparently concerned about the baby, by expressing ?I am worried about the baby, I dropped him on his head earlier Fundus: Firm at U Discharge Plan Discharge Plan Patient Disposition: Home Provider Discharge Comment: Call with fever, chills, or bleeding vaginally more than a pad in an hour Ibuprofen 600 mg every 6 hours as needed Tylenol 650 mg every 6 hours as needed Discharge orders & Medications Prescriptions: New labetalol 200 mg tablet 200 mg PO BID Qty: 60 5RF Continued duloxetine [Cymbalta] 60 mg capsule,delayed release(DR/EC) 60 mg PO DAILY Qty: 90 0RF prenat.vits,karla,[id number] Tablet 1 tab PO DAILY labetalol 200 mg Tablet 200 mg PO BID Follow up/Referrals: Annmarie Shearer MD [Physician] - 07/06/22 9:30 am Diet/Activity/Treatments Diet: Regular Activity: Nothing in the vagina for 6 weeks Skin/Wound/Dressing Care Report to your healthcare provider any signs of infection, such as:: chills, fever, increased pain and unusual drainage Visit Report/Discharge Packet Instructions: DI for Labor and Delivery, Vaginal , DI for Substance Use Disorder Stand Alone Forms: Discharge: Care Discharge Data Primary Care Provider: Pedro Hernandez
[2022-05-22 13:50] VITALS: BP 168/78; PULSE 67; TEMP 36.5
== END 2022-05-22 13:50 | disposition home or self-care (01) | DRG 807 ==
PROVIDERS: Admitting Provider Obstetrics & Gynecology; PCP Pediatrics; Referring Provider Obstetrics & Gynecology; Visit Provider Obstetrics & Gynecology
DX: O13.4 Gestational [pregnancy-induced] hypertension without significant proteinuria, complicating childbirth (principal); Z37.0 Single live birth; O99.324 Drug use complicating childbirth; F15.90 Other stimulant use, unspecified, uncomplicated; F19.90 Other psychoactive substance use, unspecified, uncomplicated; O62.3 Precipitate labor; O71.82 Other specified trauma to perineum and vulva; O99.824 Streptococcus B carrier state complicating childbirth; Z3A.39 39 weeks gestation of pregnancy; Z20.822 Contact with and (suspected) exposure to COVID-19
CPT/HCPCS: 36415; 59050; 59200; 59400; 80305; 85025; 86850; 86900; 86901; 87635; C9803; G0379; J1885; J2590